=== PATIENT | male | born 1945 | race Caucasian/White ===

== ENCOUNTER 2016-09-03 10:21 | Emergency (ER) | payer OTHER, MEDICAID ==
[~2016-09-03] VITALS: Ht 167.6 cm; Wt 107.2 kg
[~2016-09-03 10:21] MED LIST: ACLI400A2 IH; ASPI-825 PO; CANA300T PO; FURO20 PO; INSU100C3 SQ; INSU100C4 SQ; LOSA50TA37 PO; METF10002 PO; METO-323 PO; MULT-1259 PO; POTA10TA14 PO; SIMV-261 PO; SYMB8060 IH; TAMS-1 PO; VITAD5000 PO
[2016-09-03 10:37] LABS: GLUCOSE,POINT OF CARE 187 MG/DL (70-110)
[2016-09-03] MEDS ORDERED: NAPR-58 PO (10:38)
[2016-09-03] MEDS ORDERED: GLYB5 PO (10:38)
[2016-09-03] MEDS ORDERED: NIZO215C TP (10:38)
[2016-09-03] MEDS ORDERED: FURO20 PO (10:38)
[2016-09-03] MEDS ORDERED: LISI-662 PO (10:38)
[2016-09-03] MEDS ORDERED: HYDR25TA PO (10:38)
[2016-09-03] MEDS ORDERED: HYDROCODONE/ACETAMINOPHEN 5-325 MG TABLET PO ONE (12:45)
[2016-09-03 12:55] LABS: BASOPHILS % (AUTO) 0.5 % (0.0-2.0); EOSINOPHILS % (AUTO) 1.6 % (1.0-6.0); HEMOGLOBIN 15.5 g/dL (13.5-17.5); LYMPHOCYTES # (AUTO) 2.6 K/uL (1.0-4.8); LYMPHOCYTES % (AUTO) 28.8 % (22.0-44.0); MEAN CORPUSCULAR HEMOGLOBIN 28.8 pg (26.0-34.0); MEAN CORPUSCULAR HGB CONC 32.9 G/dL (31.0-37.0); MEAN CORPUSCULAR VOLUME 87 fL (80-100); MONOCYTES # (AUTO) 0.6 K/uL (0.1-1.0); NEUTROPHILS # (AUTO) 5.8 K/uL (1.8-7.7); NEUTROPHILS % (AUTO) 63.1 % (40.0-70.0); PLATELET COUNT (AUTO) 204 K/uL (150-450); RED BLOOD CELL COUNT(AUTO) 5.37 MIL/uL (4.50-5.90); RED CELL DISTRIBUTION WIDTH 14.3 % (11.5-14.5); WHITE BLOOD COUNT (AUTO) 9.2 K/uL (4.5-11.0)
[2016-09-03 13:06] LABS: ANION GAP 8 mmol/L (8-16); CARBON DIOXIDE 33 mmol/L (22-29); CHLORIDE 101 mmol/L (98-107); CREATININE 1.14 mg/dL (0.60-1.30); GLOMERULAR FILTR. RATE CALC > 60 mL/min (>60); POTASSIUM 3.8 mmol/L (3.5-5.1); SODIUM SERUM 142 mmol/L (136-145); UREA NITROGEN, BLOOD 17 mg/dL (7-18)
[2016-09-03 13:13] LABS: ALANINE AMINOTRANSFERASE 34 U/L (12-78); ALBUMIN 3.7 g/dL (3.4-5.0); ASPARTATE AMINOTRANSFERASE 20 U/L (15-37); BILIRUBIN,TOTAL 0.3 mg/dL (0.1-1.0); TOTAL PROTEIN, SERUM 7.6 g/dL (6.4-8.2)
[2016-09-03 15:01] VITALS: BP 126/83
[2016-11-20] MEDS ORDERED: CANA100T PO (14:32)
[2016-11-20] MEDS ORDERED: KDUR10 PO (14:32)
== END 2016-09-03 15:05 | disposition home or self-care (01) ==
LOC: EMS 10:23
DX: M71.21 Synovial cyst of popliteal space [Baker], right knee (principal); I11.0 Hypertensive heart disease with heart failure; I50.9 Heart failure, unspecified; E11.9 Type 2 diabetes mellitus without complications; E78.00 Pure hypercholesterolemia, unspecified; J40 Bronchitis, not specified as acute or chronic; Z88.8 Allergy status to other drugs, medicaments and biological substances; Z79.82 Long term (current) use of aspirin
CPT/HCPCS: 82962; 85379; 93971; 99285

== ENCOUNTER → 2016-09-26 | Outpatient (CLI) | payer OTHER, MEDICAID ==
[~2016-09-26] MED LIST changes: -ACLI400A2 IH; -CANA300T PO; +GLYB5 PO; +HYDR25TA PO; -INSU100C3 SQ; -INSU100C4 SQ; +LISI-662 PO; -LOSA50TA37 PO; -MULT-1259 PO; +NAPR-58 PO; +NIZO215C TP; -SIMV-261 PO; +SIMV40 PO; -SYMB8060 IH; -VITAD5000 PO
== END | disposition home or self-care (01) ==
LOC: RADPV 13:09
PROVIDERS: ATTEND Internal Medicine Critical Care Medicine
DX: J44.9 Chronic obstructive pulmonary disease, unspecified (principal); Z51.89 Encounter for other specified aftercare
CPT/HCPCS: 71020

== ENCOUNTER 2016-10-09 08:19 | Emergency (ER) | payer OTHER, MEDICAID ==
[~2016-10-09] VITALS: Ht 167.6 cm; Wt 108.2 kg
[2016-10-09 08:46] LABS: GLUCOSE,POINT OF CARE 211 MG/DL (70-110)
[2016-10-09 09:48] LABS: BASOPHILS % (AUTO) 1.4 % (0.0-2.0); EOSINOPHILS % (AUTO) 1.6 % (1.0-6.0); HEMATOCRIT 45.1 % (41-53); HEMOGLOBIN 14.8 g/dL (13.5-17.5); LYMPHOCYTES # (AUTO) 2.4 K/uL (1.0-4.8); MEAN CORPUSCULAR HEMOGLOBIN 28.7 pg (26.0-34.0); MEAN CORPUSCULAR HGB CONC 32.9 G/dL (31.0-37.0); MEAN CORPUSCULAR VOLUME 87 fL (80-100); MONOCYTES # (AUTO) 0.5 K/uL (0.1-1.0); NEUTROPHILS # (AUTO) 5.8 K/uL (1.8-7.7); PLATELET COUNT (AUTO) 183 K/uL (150-450); RED BLOOD CELL COUNT(AUTO) 5.16 MIL/uL (4.50-5.90); RED CELL DISTRIBUTION WIDTH 14.5 % (11.5-14.5); WHITE BLOOD COUNT (AUTO) 9.1 K/uL (4.5-11.0)
[2016-10-09 09:55] LABS: ANION GAP 8 mmol/L (8-16); CALCIUM, TOTAL 9.3 mg/dL (8.8-10.5); CARBON DIOXIDE 30 mmol/L (22-29); CHLORIDE 99 mmol/L (98-107); CREATININE 0.86 mg/dL (0.60-1.30); GLOMERULAR FILTR. RATE CALC > 60 mL/min (>60); POTASSIUM 3.5 mmol/L (3.5-5.1); SODIUM SERUM 137 mmol/L (136-145); UREA NITROGEN, BLOOD 14 mg/dL (7-18)
[2016-10-09 10:01] LABS: ALANINE AMINOTRANSFERASE 27 U/L (12-78); ALBUMIN 3.4 g/dL (3.4-5.0); ASPARTATE AMINOTRANSFERASE 14 U/L (15-37); BILIRUBIN,TOTAL 0.5 mg/dL (0.1-1.0); TOTAL PROTEIN, SERUM 7.6 g/dL (6.4-8.2)
[2016-10-09 10:08] LABS: B-TYPE NATRIURETIC PEPTIDE 22 pg/mL (0-100)
[2016-10-09 10:52] LABS: GLUCOSE,POINT OF CARE 178 MG/DL (70-110)
[2016-10-09 11:01] LABS: INFLUENZA TYPE B NEGATIVE FOR TYPE B (NEGATIVE)
[2016-10-09 11:15] LABS: APPEARANCE,URINE CLEAR (CLEAR); GLUCOSE, URINE (UA) >=1000 mg/dL (NEGATIVE); KETONES,URINE TRACE mg/dL (NEGATIVE); LEUKOCYTE ESTERASE ,URINE NEGATIVE (NEGATIVE); OCCULT BLOOD,URINE NEGATIVE (NEGATIVE); PROTEIN,URINE NEGATIVE (NEGATIVE)
[2016-10-09 11:18] LABS: ADD UA MICROSCOPIC YES
[2016-10-09 11:20] LABS: RBC,URINE None Seen /HPF (0-2)
[2016-10-09 11:23] LABS: SQUAMOUS EPITHELIAL CELL,UR Few /LPF (None Seen)
[2016-10-09] MEDS ORDERED: OSELTAMIVIR PHOSPHATE 75 MG CAPSULE PO ONE (12:30)
[2016-10-09 12:33] VITALS: BP 132/76
== END 2016-10-09 12:35 | disposition home or self-care (01) ==
LOC: EMS 08:20
DX: R05 Cough (principal); M54.2 Cervicalgia; I11.0 Hypertensive heart disease with heart failure; I50.9 Heart failure, unspecified; E11.9 Type 2 diabetes mellitus without complications; E78.00 Pure hypercholesterolemia, unspecified; F17.210 Nicotine dependence, cigarettes, uncomplicated
CPT/HCPCS: 82962; 87040; 87804; 93005; 99285

== ENCOUNTER 2016-10-15 09:16 | Emergency (ER) | payer OTHER, MEDICAID ==
[~2016-10-15] VITALS: Ht 167.6 cm; Wt 108290.0 kg
[2016-10-15 09:52] LABS: GLUCOSE,POINT OF CARE 165 MG/DL (70-110)
[2016-10-15] MEDS ORDERED: OSEL75 PO (09:58)
[2016-10-15] MEDS ORDERED: GuaiFENesin/D-METHORPHAN [SUGAR-FREE] 200-20MG/10 ML SYRUP UDCUP PO ONE (12:00)
[2016-10-15] MEDS ORDERED: ACETAMINOPHEN 325 MG TABLET PO ONE (12:00)
[2016-10-15 12:07] LABS: GLUCOSE,POINT OF CARE 118 MG/DL (70-110)
[2016-10-15 12:46] VITALS: BP 130/94
== END 2016-10-15 13:07 | disposition home or self-care (01) ==
LOC: EMS 09:17
DX: J40 Bronchitis, not specified as acute or chronic (principal); I11.0 Hypertensive heart disease with heart failure; I50.9 Heart failure, unspecified; E78.00 Pure hypercholesterolemia, unspecified; E11.9 Type 2 diabetes mellitus without complications; F17.200 Nicotine dependence, unspecified, uncomplicated
CPT/HCPCS: 82962; 99283

== ENCOUNTER 2016-12-28 09:59 | Emergency (ER) | payer OTHER, MEDICAID ==
[~2016-12-28] VITALS: Ht 167.6 cm; Wt 112.7 kg
[~2016-12-28 09:59] MED LIST changes: +CANA100T PO; +KDUR10 PO; -LISI-662 PO; -NAPR-58 PO; +SIMV-261 PO; -SIMV40 PO
[2016-12-28] MEDS ORDERED: INSLAN SQ (10:24)
[2016-12-28] MEDS ORDERED: INSU100V SQ (10:24)
[2016-12-28 10:27] LABS: GLUCOSE,POINT OF CARE 327 MG/DL (70-110)
[2016-12-28] MEDS ORDERED: HYDROCODONE/ACETAMINOPHEN 5-325 MG TABLET PO ONE (11:30)
[2016-12-28] MEDS ORDERED: BACITRACIN 0.9 GM PACKET OINTMENT TP ONE (12:45)
[2016-12-28 13:00] VITALS: BP 132/85
== END 2016-12-28 13:27 | disposition home or self-care (01) ==
LOC: EMS 10:00
DX: S91.204A Unspecified open wound of right lesser toe(s) with damage to nail, initial encounter (principal); E11.9 Type 2 diabetes mellitus without complications; E78.00 Pure hypercholesterolemia, unspecified; I11.0 Hypertensive heart disease with heart failure; I50.9 Heart failure, unspecified; F17.210 Nicotine dependence, cigarettes, uncomplicated; Z79.82 Long term (current) use of aspirin; Z79.4 Long term (current) use of insulin; W23.0XXA Caught, crushed, jammed, or pinched between moving objects, initial encounter; Y93.02 Activity, running; Y92.89 Other specified places as the place of occurrence of the external cause; Y99.8 Other external cause status
CPT/HCPCS: 82962; 99284

== ENCOUNTER 2017-01-09 13:05 | Emergency (ER) | payer BC, MEDICAID ==
[~2017-01-09] VITALS: Ht 167.6 cm; Wt 112.7 kg
[~2017-01-09 13:05] MED LIST changes: +ACLI400A2 IH; +BENZ-26 PO; +CANA300T PO; +CEPH500 PO; +FURO-152 PO; +FURO40 PO; +GLYB5TAB5 PO; +HYDR-3110 PO; +HYDR10SY16 PO; +HYDR20OI TP; +INSLAN SQ; +INSNOV SQ; +INSU100C3 SQ; +INSU100C4 SQ; +INSU100V SQ; +LEVO500 PO; +LIDE515C TD; +LISI-662 PO; +LISI40TA4 PO; +LOSA25TA2 PO; +LOSA50TA37 PO; +MECL-111 PO; +MULT-1259 PO; +NAPR-58 PO; +NITR100C4 PO; +NYSTPW TP; +OSEL75 PO; +SULF-168 PO; +SULF1TAB42 PO; +SYMB8060 IH; +TRI115C TP; +TRI115O TP; +VITAD5000 PO
[2017-01-09 13:22] LABS: GLUCOSE,POINT OF CARE 179 MG/DL (70-110)
[2017-01-09 14:45] VITALS: BP 128/83
== END 2017-01-09 14:49 | disposition home or self-care (01) ==
LOC: EMS 13:06
DX: J02.9 Acute pharyngitis, unspecified (principal); J02.8 Acute pharyngitis due to other specified organisms; B97.89 Other viral agents as the cause of diseases classified elsewhere; E11.9 Type 2 diabetes mellitus without complications; I11.0 Hypertensive heart disease with heart failure; I50.9 Heart failure, unspecified; E78.00 Pure hypercholesterolemia, unspecified; F17.210 Nicotine dependence, cigarettes, uncomplicated; Z79.4 Long term (current) use of insulin; Z79.82 Long term (current) use of aspirin
CPT/HCPCS: 82962; 87430; 99285

== ENCOUNTER 2017-03-30 10:01 | Emergency (ER) | payer OTHER, MEDICAID ==
[~2017-03-30] VITALS: Ht 167.6 cm; Wt 112.7 kg
[~2017-03-30 10:01] MED LIST changes: -ACLI400A2 IH; -BENZ-26 PO; -CANA300T PO; -CEPH500 PO; -FURO-152 PO; -FURO40 PO; -GLYB5TAB5 PO; -HYDR-3110 PO; -HYDR10SY16 PO; -HYDR20OI TP; -INSNOV SQ; -INSU100C3 SQ; -INSU100C4 SQ; -LEVO500 PO; -LIDE515C TD; -LISI-662 PO; -LISI40TA4 PO; -LOSA25TA2 PO; -LOSA50TA37 PO; -MECL-111 PO; -METO-323 PO; +METO25XL PO; -MULT-1259 PO; -NAPR-58 PO; -NITR100C4 PO; -NYSTPW TP; -OSEL75 PO; -POTA10TA14 PO; -SULF-168 PO; -SULF1TAB42 PO; -SYMB8060 IH; -TRI115C TP; -TRI115O TP; -VITAD5000 PO
[2017-03-30 10:08] VITALS: BP 135/64
[2017-03-30 10:17] LABS: GLUCOSE,POINT OF CARE 244 MG/DL (70-110)
== END 2017-03-30 12:31 | disposition home or self-care (01) ==
LOC: EMS 10:02
DX: H61.21 Impacted cerumen, right ear (principal); I10 Essential (primary) hypertension; E11.9 Type 2 diabetes mellitus without complications; E78.00 Pure hypercholesterolemia, unspecified; F17.200 Nicotine dependence, unspecified, uncomplicated; Z79.4 Long term (current) use of insulin; Z79.82 Long term (current) use of aspirin; Z85.820 Personal history of malignant melanoma of skin
CPT/HCPCS: 82962; 99282

== ENCOUNTER 2017-11-16 09:38 | Emergency (ER) | payer MEDICARE, MEDICAID ==
[~2017-11-16] VITALS: Ht 167.6 cm; Wt 102.3 kg
[~2017-11-16 09:38] MED LIST changes: -METF10002 PO; +METF10004 PO; -NIZO215C TP
[2017-11-16 10:02] LABS: GLUCOSE,POINT OF CARE 167 MG/DL (70-110)
[2017-11-16 10:37] VITALS: BP 137/73
[2017-11-16] MEDS ORDERED: IBUPROFEN 600 MG TABLET PO ONE (10:45)
[2017-11-16] MEDS ORDERED: SILVER SULFADIAZINE 1% 25 GM CREAM TP ONE (10:45)
== END 2017-11-16 11:09 | disposition home or self-care (01) ==
LOC: EMS 09:47
DX: T24.212A Burn of second degree of left thigh, initial encounter (principal); I11.0 Hypertensive heart disease with heart failure; I50.9 Heart failure, unspecified; E11.9 Type 2 diabetes mellitus without complications; E78.00 Pure hypercholesterolemia, unspecified; F17.210 Nicotine dependence, cigarettes, uncomplicated; Z79.4 Long term (current) use of insulin; X11.8XXA Contact with other hot tap-water, initial encounter; Y93.89 Activity, other specified; Y92.89 Other specified places as the place of occurrence of the external cause; Y99.8 Other external cause status
CPT/HCPCS: 16020; 99284; 99406

== ENCOUNTER 2017-12-16 09:07 | Inpatient (IN) | payer MEDICARE, MEDICAID ==
[~2017-12-16] VITALS: Ht 167.6 cm; Wt 104.2 kg
[2017-12-16 09:23] LABS: GLUCOSE,POINT OF CARE 284 MG/DL (70-110)
[2017-12-16] MEDS ORDERED: ACETAMINOPHEN 500 MG TABLET PO ONE (10:15)
[2017-12-16] MEDS ORDERED: SODIUM CHLORIDE 0.9% 1,000 ML IV ONE (10:15)
[2017-12-16] MEDS ORDERED: 0.9% SODIUM CHLORIDE 10 ML SYRINGE IVP PRN ×2 (10:15→11:45)
[2017-12-16 10:33] LABS: BILIRUBIN,URINE NEGATIVE (NEGATIVE); GLUCOSE, URINE (UA) 100 mg/dL (NEGATIVE); KETONES,URINE NEGATIVE (NEGATIVE); LEUKOCYTE ESTERASE ,URINE TRACE (NEGATIVE); NITRATE,URINE NEGATIVE (NEGATIVE); OCCULT BLOOD,URINE SMALL (NEGATIVE); PROTEIN,URINE TRACE (NEGATIVE); UROBILINOGEN,URINE 0.2 mg/dL (<=1.0)
[2017-12-16 10:41] LABS: APPEARANCE,URINE HAZY (CLEAR)
[2017-12-16 10:52] LABS: BACTERIA,URINE Few /HPF (None Seen); RBC,URINE 0-2 /HPF (0-2); RENAL EPITHELIAL CELLS,URINE Rare /LPF (None Seen); SQUAMOUS EPITHELIAL CELL,UR Few /LPF (None Seen)
[2017-12-16 10:53] LABS: BASOPHILS % (AUTO) 0.3 % (0.0-2.0); EOSINOPHILS % (AUTO) 2.7 % (1.0-6.0); HEMATOCRIT 46.4 % (41-53); HEMOGLOBIN 16.1 g/dL (13.5-17.5); LYMPHOCYTES # (AUTO) 1.4 K/uL (1.0-4.8); LYMPHOCYTES % (AUTO) 15.2 % (22.0-44.0); MEAN CORPUSCULAR HEMOGLOBIN 29.5 pg (26.0-34.0); MEAN CORPUSCULAR HGB CONC 34.8 G/dL (31.0-37.0); MEAN CORPUSCULAR VOLUME 85 fL (80-100); MONOCYTES # (AUTO) 0.8 K/uL (0.1-1.0); NEUTROPHILS # (AUTO) 6.6 K/uL (1.8-7.7); NEUTROPHILS % (AUTO) 72.8 % (40.0-70.0); PLATELET COUNT (AUTO) 155 K/uL (150-450); RED BLOOD CELL COUNT(AUTO) 5.47 MIL/uL (4.50-5.90); RED CELL DISTRIBUTION WIDTH 13.8 % (11.5-14.5)
[2017-12-16 11:02] LABS: PROTHROMBIN TIME 10.4 SEC (9.4-11.6)
[2017-12-16 11:10] LABS: LACTIC ACID 1.9 mmol/L (0.4-2.0)
[2017-12-16 11:16] LABS: ALANINE AMINOTRANSFERASE 33 U/L (12-78); ALBUMIN 3.7 g/dL (3.4-5.0); ALKALINE PHOSPHATASE 84 U/L (46-116); ANION GAP 5 mmol/L (8-16); ASPARTATE AMINOTRANSFERASE 23 U/L (15-37); BILIRUBIN,TOTAL 0.5 mg/dL (0.1-1.0); CALCIUM, TOTAL 8.2 mg/dL (8.8-10.5); CARBON DIOXIDE 36 mmol/L (22-29); CHLORIDE 93 mmol/L (98-107); CREATININE 0.99 mg/dL (0.60-1.30); GLOMERULAR FILTR. RATE CALC > 60 mL/min (>60); GLUCOSE,RANDOM 241 mg/dL (70-110); SODIUM SERUM 134 mmol/L (136-145); TOTAL PROTEIN, SERUM 8.1 g/dL (6.4-8.2); UREA NITROGEN, BLOOD 10 mg/dL (7-18)
[2017-12-16 11:19] LABS: POTASSIUM 2.6 mmol/L (3.5-5.1)
[2017-12-16 11:42] LABS: B-TYPE NATRIURETIC PEPTIDE 20 pg/mL (0-100)
[2017-12-16] MEDS ORDERED: CefTRIAXone SODIUM 2 GM in DEXTROSE 5%-WATER 20 ML IV ONE (11:45)
[2017-12-16] MEDS ORDERED: ONDANSETRON HCL 4 MG/2 ML VIAL IVP PRN ×2 (11:45→14:00)
[2017-12-16] MEDS ORDERED: POTASSIUM CHLORIDE 20 MEQ ER TABLET PO ONE (11:45)
[2017-12-16] MEDS ORDERED: ACETAMINOPHEN 325 MG TABLET PO PRN (11:45)
[2017-12-16 11:57] LABS: PHOSPHORUS 3.9 mg/dL (2.5-4.9)
[2017-12-16] MEDS: POTASSIUM CHL 10 MEQ/WATER 50 ML IV SCH ×3 (11:58→14:26)
[2017-12-16] MEDS ORDERED: MAGNESIUM SULFATE 2 GM, MVI, ADULT NO.1 WITH VIT K 10 ML, THIAMINE HCL 100 MG, FOLIC AC... IV ONE ×5 (12:15)
[2017-12-16] MEDS ORDERED: MISC MED-CONVERTED FROM AMBULATORY (Aspirin 81 MG) PO SCH (14:00)
[2017-12-16] MEDS ORDERED: ACETAMINOPHEN 650 MG/20.3 ML SOLUTION UDCUP PO PRN (14:00)
[2017-12-16] MEDS ORDERED: BISACODYL 10 MG RECTAL RECTAL SUPPOSITORY PR PRN (14:00)
[2017-12-16] MEDS ORDERED: MAGNESIUM HYDROXIDE SUSPENSION 30 ML UDCUP PO PRN (14:00)
[2017-12-16 14:01] VITALS: BP 148/93
[2017-12-16] MEDS: PANTOPRAZOLE SODIUM 40 MG DR TABLET PO SCH (14:24)
[2017-12-16] MEDS: TAMSULOSIN HCL 0.4 MG CAPSULE PO SCH (14:24)
[2017-12-16] MEDS: METOPROLOL SUCCINATE 25 MG ER TABLET PO SCH (14:24)
[2017-12-16] MEDS ORDERED: DEXTROSE 50%-WATER 25 GM/50 ML SYRINGE IVP PRN (14:45)
[2017-12-16] MEDS ORDERED: POTASSIUM CHL 10 MEQ/WATER 50 ML IV PRN (15:45)
[2017-12-16 16:00] VITALS: BP 134/78
[2017-12-16] MEDS: MetFORMIN HCL 500 MG TABLET PO SCH (18:04)
[2017-12-16] MEDS: INSULIN LISPRO 100 UNITS/ML SQ PRN ×2 (18:05→20:08)
[2017-12-16 19:18] VITALS: BP 118/69
[2017-12-16 19:28] LABS: GLUCOMETER DEV NAME(LOC) 5N 2S; GLUCOSE,POINT OF CARE 189 MG/DL (70-110)
[2017-12-16] MEDS: SIMVASTATIN 40 MG TABLET PO SCH (20:06)
[2017-12-16] MEDS: INSULIN GLARGINE,HUM.REC.ANLOG 100 UNITS/ML SQ SCH (20:09)
[2017-12-16] MEDS: POTASSIUM CHLORIDE 20 MEQ ER TABLET PO PRN (20:58)
[2017-12-16 23:23] VITALS: BP 128/81
[2017-12-17] MEDS: HEPARIN SODIUM,PORCINE 5,000 UNITS/ML VIAL SQ SCH ×3 (00:04→17:54)
[2017-12-17] MEDS: POTASSIUM CHLORIDE 20 MEQ ER TABLET PO PRN ×2 (02:02→08:44)
[2017-12-17 04:20] VITALS: BP 132/77
[2017-12-17] MEDS: INSULIN LISPRO 100 UNITS/ML SQ PRN (06:18)
[2017-12-17] MEDS: CANAGLIFLOZIN 100 MG TABLET PO SCH (06:30)
[2017-12-17 06:35] LABS: BASOPHILS % (AUTO) 0.2 % (0.0-2.0); EOSINOPHILS % (AUTO) 3.7 % (1.0-6.0); HEMATOCRIT 42.2 % (41-53); LYMPHOCYTES # (AUTO) 1.9 K/uL (1.0-4.8); LYMPHOCYTES % (AUTO) 27.1 % (22.0-44.0); MEAN CORPUSCULAR HEMOGLOBIN 30.4 pg (26.0-34.0); MEAN CORPUSCULAR HGB CONC 35.6 G/dL (31.0-37.0); MEAN CORPUSCULAR VOLUME 85 fL (80-100); MONOCYTES # (AUTO) 0.7 K/uL (0.1-1.0); MONOCYTES % (AUTO) 10.5 % (2.0-9.0); NEUTROPHILS # (AUTO) 4.1 K/uL (1.8-7.7); NEUTROPHILS % (AUTO) 58.5 % (40.0-70.0); PLATELET COUNT (AUTO) 155 K/uL (150-450); RED BLOOD CELL COUNT(AUTO) 4.94 MIL/uL (4.50-5.90); RED CELL DISTRIBUTION WIDTH 13.6 % (11.5-14.5)
[2017-12-17 06:53] LABS: GLUCOMETER DEV NAME(LOC) 5N 1P; GLUCOSE,POINT OF CARE 323 MG/DL (70-110)
[2017-12-17 06:54] LABS: GLUCOMETER DEV NAME(LOC) 5N 1P; GLUCOSE,POINT OF CARE 175 MG/DL (70-110)
[2017-12-17 07:10] LABS: ALANINE AMINOTRANSFERASE 30 U/L (12-78); ALBUMIN 3.1 g/dL (3.4-5.0); ALKALINE PHOSPHATASE 75 U/L (46-116); ANION GAP 8 mmol/L (8-16); ASPARTATE AMINOTRANSFERASE 21 U/L (15-37); BILIRUBIN,TOTAL 0.2 mg/dL (0.1-1.0); CALCIUM, TOTAL 7.5 mg/dL (8.8-10.5); CARBON DIOXIDE 30 mmol/L (22-29); CHLORIDE 100 mmol/L (98-107); CHOL/HDL RATIO 3.6 (4.2-7.3); CHOLESTEROL 136 mg/dL (131-200); CREATININE 0.68 mg/dL (0.60-1.30); GLOMERULAR FILTR. RATE CALC > 60 mL/min (>60); GLUCOSE,RANDOM 144 mg/dL (70-110); HDL CHOLESTEROL 38 mg/dL (40-60); LDL CHOL (CALC.) 58 mg/dL (0-130); POTASSIUM 3.4 mmol/L (3.5-5.1); SODIUM SERUM 138 mmol/L (136-145); TOTAL PROTEIN, SERUM 6.3 g/dL (6.4-8.2); TRIGLYCERIDES 202 mg/dL (15-150); UREA NITROGEN, BLOOD 7 mg/dL (7-18)
[2017-12-17 07:18] VITALS: BP 145/87
[2017-12-17 07:28] LABS: HEMOGLOBIN A1C 8.4 % (4.5-6.2)
[2017-12-17] MEDS: MetFORMIN HCL 500 MG TABLET PO SCH ×2 (08:40→17:55)
[2017-12-17] MEDS: GlyBURIDE 5 MG TABLET PO SCH (08:40)
[2017-12-17] MEDS: ASPIRIN 81 MG EC TABLET PO SCH (08:41)
[2017-12-17] MEDS: TAMSULOSIN HCL 0.4 MG CAPSULE PO SCH (08:42)
[2017-12-17] MEDS: FUROSEMIDE 20 MG TABLET PO SCH (08:42)
[2017-12-17] MEDS: METOPROLOL SUCCINATE 25 MG ER TABLET PO SCH (08:43)
[2017-12-17] MEDS: PANTOPRAZOLE SODIUM 40 MG DR TABLET PO SCH (08:43)
[2017-12-17] MEDS: POTASSIUM CHLORIDE 10 MEQ ER TABLET PO SCH ×2 (08:44→20:31)
[2017-12-17] MEDS: HYDROCHLOROTHIAZIDE 25 MG TABLET PO SCH (08:47)
[2017-12-17 11:33] VITALS: BP 129/61
[2017-12-17] MEDS ORDERED: CefTRIAXone SODIUM 1 GM in DEXTROSE 5%-WATER 10 ML IV SCH (15:00)
[2017-12-17 15:35] VITALS: BP 99/65
[2017-12-17] MEDS: MetroNIDAZOLE 500 MG/NACL 100 ML IV SCH (18:01)
[2017-12-17] MEDS ORDERED: SODIUM CHLORIDE 0.9% 250 ML IV ONE (18:05)
[2017-12-17 19:55] VITALS: BP 121/79
[2017-12-17] MEDS: SIMVASTATIN 40 MG TABLET PO SCH (20:32)
[2017-12-17] MEDS: INSULIN GLARGINE,HUM.REC.ANLOG 100 UNITS/ML SQ SCH (20:36)
[2017-12-17 23:43] VITALS: BP 112/65
[2017-12-18] MEDS: HEPARIN SODIUM,PORCINE 5,000 UNITS/ML VIAL SQ SCH ×2 (00:11→09:09)
[2017-12-18 00:29] LABS: GLUCOMETER DEV NAME(LOC) 5N 2S; GLUCOSE,POINT OF CARE 111 MG/DL (70-110)
[2017-12-18 00:29] LABS: GLUCOMETER DEV NAME(LOC) 5N 2S; GLUCOSE,POINT OF CARE 132 MG/DL (70-110)
[2017-12-18 00:29] LABS: GLUCOMETER DEV NAME(LOC) 5N 2S; GLUCOSE,POINT OF CARE 125 MG/DL (70-110)
[2017-12-18] MEDS: MetroNIDAZOLE 500 MG/NACL 100 ML IV SCH ×2 (02:07→09:18)
[2017-12-18 04:46] VITALS: BP 110/71
[2017-12-18] MEDS: CANAGLIFLOZIN 100 MG TABLET PO SCH (06:02)
[2017-12-18 07:16] VITALS: BP 99/59
[2017-12-18 07:29] VITALS: BP 117/50
[2017-12-18 08:30] VITALS: BP 114/71
[2017-12-18] MEDS: PANTOPRAZOLE SODIUM 40 MG DR TABLET PO SCH (09:04)
[2017-12-18] MEDS: MetFORMIN HCL 500 MG TABLET PO SCH (09:05)
[2017-12-18] MEDS: FUROSEMIDE 20 MG TABLET PO SCH (09:05)
[2017-12-18] MEDS: METOPROLOL SUCCINATE 25 MG ER TABLET PO SCH (09:06)
[2017-12-18] MEDS: POTASSIUM CHLORIDE 10 MEQ ER TABLET PO SCH (09:06)
[2017-12-18] MEDS: ASPIRIN 81 MG EC TABLET PO SCH (09:06)
[2017-12-18] MEDS: TAMSULOSIN HCL 0.4 MG CAPSULE PO SCH (09:07)
[2017-12-18] MEDS: GlyBURIDE 5 MG TABLET PO SCH (09:08)
[2017-12-18] MEDS: HYDROCHLOROTHIAZIDE 25 MG TABLET PO SCH (09:09)
[2017-12-18 11:25] VITALS: BP 103/61
[2017-12-18 11:49] LABS: GLUCOMETER DEV NAME(LOC) 5N 2S; GLUCOSE,POINT OF CARE 123 MG/DL (70-110)
[2017-12-18 11:49] LABS: GLUCOMETER DEV NAME(LOC) 5N 1P; GLUCOSE,POINT OF CARE 128 MG/DL (70-110)
[2017-12-18 14:51] VITALS: BP 128/70
== END 2017-12-18 15:40 | disposition home or self-care (01) | DRG 690 ==
LOC: EMS 09:10 → 5N 11:41
PROVIDERS: ADMIT Family Medicine; ATTEND Family Medicine
DX: N39.0 Urinary tract infection, site not specified (principal); I11.0 Hypertensive heart disease with heart failure; M19.90 Unspecified osteoarthritis, unspecified site; E87.6 Hypokalemia; E83.42 Hypomagnesemia; E11.51 Type 2 diabetes mellitus with diabetic peripheral angiopathy without gangrene; E78.00 Pure hypercholesterolemia, unspecified; E78.5 Hyperlipidemia, unspecified; I50.9 Heart failure, unspecified; N40.0 Benign prostatic hyperplasia without lower urinary tract symptoms; F17.200 Nicotine dependence, unspecified, uncomplicated; Z79.4 Long term (current) use of insulin; Z79.899 Other long term (current) drug therapy; Z79.82 Long term (current) use of aspirin; Z85.820 Personal history of malignant melanoma of skin
CPT/HCPCS: 83036; 83605; 83735; 84100; 84132; 87040; 87086; 93005; 96365; 96366; 96368; 97162; 97530; 99285; J0696; J1644; J1815; J3411; J3475; J3480; J3490; J7030; J7050; J7060

== ENCOUNTER 2017-12-31 08:15 | Emergency (ER) | payer MEDICARE, MEDICAID ==
[~2017-12-31] VITALS: Ht 167.6 cm; Wt 104.5 kg
[2017-12-31] MEDS ORDERED: HYDROCODONE/ACETAMINOPHEN 5-325 MG TABLET PO ONE (08:45)
[2017-12-31 09:00] LABS: BASOPHILS % (AUTO) 0.4 % (0.0-2.0); EOSINOPHILS % (AUTO) 1.7 % (1.0-6.0); HEMATOCRIT 43.7 % (41-53); HEMOGLOBIN 15.1 g/dL (13.5-17.5); LYMPHOCYTES # (AUTO) 2.3 K/uL (1.0-4.8); LYMPHOCYTES % (AUTO) 28.8 % (22.0-44.0); MEAN CORPUSCULAR HEMOGLOBIN 29.6 pg (26.0-34.0); MEAN CORPUSCULAR HGB CONC 34.6 G/dL (31.0-37.0); MEAN CORPUSCULAR VOLUME 86 fL (80-100); MONOCYTES # (AUTO) 0.6 K/uL (0.1-1.0); MONOCYTES % (AUTO) 7.6 % (2.0-9.0); NEUTROPHILS % (AUTO) 61.5 % (40.0-70.0); PLATELET COUNT (AUTO) 197 K/uL (150-450); RED BLOOD CELL COUNT(AUTO) 5.11 MIL/uL (4.50-5.90); RED CELL DISTRIBUTION WIDTH 13.6 % (11.5-14.5)
[2017-12-31 09:10] LABS: ANION GAP 4 mmol/L (8-16); CALCIUM, TOTAL 8.6 mg/dL (8.8-10.5); CARBON DIOXIDE 30 mmol/L (22-29); CHLORIDE 100 mmol/L (98-107); CREATININE 0.76 mg/dL (0.60-1.30); GLUCOSE,RANDOM 243 mg/dL (70-110); POTASSIUM 3.4 mmol/L (3.5-5.1); SODIUM SERUM 134 mmol/L (136-145); UREA NITROGEN, BLOOD 9 mg/dL (7-18)
[2017-12-31 09:11] LABS: GLOMERULAR FILTR. RATE CALC > 60 mL/min (>60)
[2017-12-31 09:16] LABS: ALANINE AMINOTRANSFERASE 36 U/L (12-78); ALBUMIN 3.2 g/dL (3.4-5.0); ALKALINE PHOSPHATASE 64 U/L (46-116); ASPARTATE AMINOTRANSFERASE 21 U/L (15-37); BILIRUBIN,TOTAL 0.5 mg/dL (0.1-1.0); TOTAL PROTEIN, SERUM 6.8 g/dL (6.4-8.2)
[2017-12-31] MEDS ORDERED: MAGNESIUM OXIDE 400 MG TABLET PO ONE (09:30)
[2017-12-31 09:36] VITALS: BP 122/73
== END 2017-12-31 10:26 | disposition home or self-care (01) ==
LOC: EMS 08:17
DX: M79.662 Pain in left lower leg (principal); E83.42 Hypomagnesemia; I11.0 Hypertensive heart disease with heart failure; I50.9 Heart failure, unspecified; E78.00 Pure hypercholesterolemia, unspecified; E11.9 Type 2 diabetes mellitus without complications; F17.210 Nicotine dependence, cigarettes, uncomplicated; Z79.4 Long term (current) use of insulin
CPT/HCPCS: 83735; 85379; 93925; 93971; 99285

== ENCOUNTER 2018-02-10 12:04 | Emergency (ER) | payer MEDICARE, MEDICAID ==
[~2018-02-10] VITALS: Ht 167.6 cm; Wt 104.5 kg
[~2018-02-10 12:04] MED LIST changes: -CANA100T PO
[2018-02-10 12:18] LABS: GLUCOSE,POINT OF CARE 179 MG/DL (70-110)
[2018-02-10] MEDS ORDERED: IBUPROFEN 800 MG TABLET PO ONE (12:30)
[2018-02-10 13:25] VITALS: BP 136/72
== END 2018-02-10 13:27 | disposition home or self-care (01) ==
LOC: EMS 12:05
DX: H60.91 Unspecified otitis externa, right ear (principal); H61.21 Impacted cerumen, right ear; I11.0 Hypertensive heart disease with heart failure; I50.9 Heart failure, unspecified; M19.90 Unspecified osteoarthritis, unspecified site; E78.00 Pure hypercholesterolemia, unspecified; F17.210 Nicotine dependence, cigarettes, uncomplicated; Z85.820 Personal history of malignant melanoma of skin
CPT/HCPCS: 69209; 99283

== ENCOUNTER 2018-07-16 08:19 | Inpatient (IN) | payer MEDICARE, MEDICAID ==
[~2018-07-16] VITALS: Ht 167.6 cm; Wt 100.5 kg
[~2018-07-16 08:19] MED LIST changes: +METF-446 PO; -METF10004 PO
[2018-07-16] MEDS ORDERED: DUTA.5 PO (08:25)
[2018-07-16] MEDS ORDERED: MULT-1290 PEG (08:25)
[2018-07-16] MEDS ORDERED: VITAD1000 PO (08:25)
[2018-07-16] MEDS ORDERED: ACETAMINOPHEN 500 MG TABLET PO ONE (08:30)
[2018-07-16 08:34] LABS: GLUCOSE,POINT OF CARE 248 MG/DL (70-110)
[2018-07-16 09:04] LABS: BASOPHILS % (AUTO) 0.3 % (0.0-2.0); HEMATOCRIT 43.4 % (41-53); HEMOGLOBIN 14.8 g/dL (13.5-17.5); LYMPHOCYTES # (AUTO) 1.9 K/uL (1.0-4.8); LYMPHOCYTES % (AUTO) 20.2 % (22.0-44.0); MEAN CORPUSCULAR HEMOGLOBIN 29.7 pg (26.0-34.0); MEAN CORPUSCULAR HGB CONC 34.2 G/dL (31.0-37.0); MEAN CORPUSCULAR VOLUME 87 fL (80-100); MONOCYTES # (AUTO) 0.7 K/uL (0.1-1.0); MONOCYTES % (AUTO) 7.7 % (2.0-9.0); NEUTROPHILS # (AUTO) 6.3 K/uL (1.8-7.7); NEUTROPHILS % (AUTO) 68.8 % (40.0-70.0); PLATELET COUNT (AUTO) 181 K/uL (150-450); RED BLOOD CELL COUNT(AUTO) 5.01 MIL/uL (4.50-5.90); RED CELL DISTRIBUTION WIDTH 13.3 % (11.5-14.5)
[2018-07-16 09:17] LABS: ANION GAP 6 mmol/L (8-16); CALCIUM, TOTAL 8.5 mg/dL (8.8-10.5); CARBON DIOXIDE 33 mmol/L (22-29); CHLORIDE 97 mmol/L (98-107); CREATININE 0.87 mg/dL (0.60-1.30); GLUCOSE,RANDOM 304 mg/dL (70-110); POTASSIUM 3.2 mmol/L (3.5-5.1); SODIUM SERUM 136 mmol/L (136-145); UREA NITROGEN, BLOOD 10 mg/dL (7-18)
[2018-07-16 09:18] LABS: GLOMERULAR FILTR. RATE CALC > 60 mL/min (>60)
[2018-07-16 10:28] LABS: APPEARANCE,URINE CLOUDY (CLEAR); BILIRUBIN,URINE NEGATIVE (NEGATIVE); GLUCOSE, URINE (UA) >=1000 mg/dL (NEGATIVE); KETONES,URINE NEGATIVE (NEGATIVE); LEUKOCYTE ESTERASE ,URINE SMALL (NEGATIVE); NITRATE,URINE POSITIVE (NEGATIVE); OCCULT BLOOD,URINE SMALL (NEGATIVE); PH,URINE 5.5 (5.0-8.0); PROTEIN,URINE NEGATIVE (NEGATIVE); UROBILINOGEN,URINE 0.2 mg/dL (<=1.0)
[2018-07-16 10:37] LABS: BACTERIA,URINE Many /HPF (None Seen)
[2018-07-16 10:38] LABS: SQUAMOUS EPITHELIAL CELL,UR Few /LPF (None Seen)
[2018-07-16] MEDS ORDERED: SODIUM CHLORIDE 0.9% 1,000 ML IV ONE (10:45)
[2018-07-16] MEDS ORDERED: CefTRIAXone 1 GM/DEXTROSE 50 ML IV ONE (10:45)
[2018-07-16 12:18] LABS: LACTIC ACID 2.3 mmol/L (0.4-2.0)
[2018-07-16] MEDS ORDERED: ZOLPIDEM TARTRATE 5 MG TABLET PO PRN (12:45)
[2018-07-16] MEDS ORDERED: ALBUTEROL SULFATE 2.5 MG/0.5 ML NEB SOLUTION NEB PRN (12:45)
[2018-07-16] MEDS ORDERED: ACETAMINOPHEN 325 MG TABLET PO PRN (12:45)
[2018-07-16] MEDS ORDERED: BISACODYL 10 MG RECTAL RECTAL SUPPOSITORY PR PRN (12:45)
[2018-07-16] MEDS ORDERED: ONDANSETRON HCL 4 MG/2 ML VIAL IVP PRN ×2 (12:45)
[2018-07-16] MEDS ORDERED: MAGNESIUM HYDROXIDE SUSPENSION 30 ML UDCUP PO PRN (12:45)
[2018-07-16] MEDS ORDERED: DEXTROSE 50%-WATER 25 GM/50 ML SYRINGE IVP PRN ×2 (12:45→13:00)
[2018-07-16] MEDS ORDERED: IPRATROPIUM BROMIDE 0.5 MG/2.5 ML NEB SOLUTION NEB PRN (12:45)
[2018-07-16] MEDS ORDERED: CloNIDine HCL 0.1 MG TABLET PO PRN (13:00)
[2018-07-16] MEDS ORDERED: CARVEDILOL 6.25 MG TABLET PO SCH (13:00)
[2018-07-16 14:15] VITALS: BP 127/71
[2018-07-16] MEDS: HEPARIN SODIUM,PORCINE 5,000 UNITS/ML VIAL SQ SCH ×2 (16:34→23:20)
[2018-07-16] MEDS: INSULIN LISPRO 100 UNITS/ML SQ SCH (16:37)
[2018-07-16] MEDS: INSULIN LISPRO 100 UNITS/ML SQ PRN ×2 (16:37→20:46)
[2018-07-16] MEDS ORDERED: POTASSIUM CHLORIDE 20 MEQ ER TABLET PO ONE (17:00)
[2018-07-16] MEDS ORDERED: MetFORMIN HCL 500 MG TABLET PO SCH (17:30)
[2018-07-16 19:05] LABS: GLUCOMETER DEV NAME(LOC) 4E.; GLUCOSE,POINT OF CARE 366 MG/DL (70-110)
[2018-07-16 19:25] LABS: CREATININE,URINE RANDOM 47.8 mg/dL (30.0-125.0)
[2018-07-16 19:48] VITALS: BP 138/99
[2018-07-16] MEDS: INSULIN GLARGINE,HUM.REC.ANLOG 100 UNITS/ML SQ SCH (20:45)
[2018-07-16 20:59] LABS: GLUCOMETER DEV NAME(LOC) 4E.; GLUCOSE,POINT OF CARE 273 MG/DL (70-110)
[2018-07-16] MEDS: POTASSIUM CHLORIDE 10 MEQ ER TABLET PO SCH (21:00)
[2018-07-16] MEDS: SIMVASTATIN 40 MG TABLET PO SCH (21:45)
[2018-07-16 23:28] VITALS: BP 142/87
[2018-07-17 05:15] VITALS: BP 143/78
[2018-07-17] MEDS: INSULIN LISPRO 100 UNITS/ML SQ SCH ×4 (05:42→17:54)
[2018-07-17] MEDS: INSULIN LISPRO 100 UNITS/ML SQ PRN ×4 (05:43→20:25)
[2018-07-17 05:44] LABS: GLUCOMETER DEV NAME(LOC) 4E.; GLUCOSE,POINT OF CARE 173 MG/DL (70-110)
[2018-07-17 06:09] LABS: BASOPHILS % (AUTO) 0.4 % (0.0-2.0); EOSINOPHILS % (AUTO) 3.9 % (1.0-6.0); HEMATOCRIT 43.2 % (41-53); HEMOGLOBIN 14.7 g/dL (13.5-17.5); LYMPHOCYTES # (AUTO) 2.2 K/uL (1.0-4.8); LYMPHOCYTES % (AUTO) 29.1 % (22.0-44.0); MEAN CORPUSCULAR HEMOGLOBIN 29.8 pg (26.0-34.0); MEAN CORPUSCULAR VOLUME 88 fL (80-100); MONOCYTES # (AUTO) 0.8 K/uL (0.1-1.0); MONOCYTES % (AUTO) 9.9 % (2.0-9.0); NEUTROPHILS # (AUTO) 4.3 K/uL (1.8-7.7); NEUTROPHILS % (AUTO) 56.7 % (40.0-70.0); PLATELET COUNT (AUTO) 176 K/uL (150-450); RED BLOOD CELL COUNT(AUTO) 4.92 MIL/uL (4.50-5.90)
[2018-07-17 06:26] LABS: HEMOGLOBIN A1C 11.1 % (4.5-6.2)
[2018-07-17 06:31] LABS: ANION GAP 5 mmol/L (8-16); CALCIUM, TOTAL 8.6 mg/dL (8.8-10.5); CARBON DIOXIDE 32 mmol/L (22-29); CHLORIDE 102 mmol/L (98-107); CHOL/HDL RATIO 4.2 (4.2-7.3); CHOLESTEROL 174 mg/dL (131-200); CREATINE KINASE, TOTAL ONLY 57 U/L (39-308); CREATININE 0.69 mg/dL (0.60-1.30); GLOMERULAR FILTR. RATE CALC > 60 mL/min (>60); GLUCOSE,RANDOM 155 mg/dL (70-110); HDL CHOLESTEROL 41 mg/dL (40-60); LDL CHOL (CALC.) 76 mg/dL (0-130); POTASSIUM 3.6 mmol/L (3.5-5.1); SODIUM SERUM 139 mmol/L (136-145); THYROID STIMULATING HORMONE 2.74 uIU/mL (0.36-3.74); TRIGLYCERIDES 285 mg/dL (15-150); UREA NITROGEN, BLOOD 7 mg/dL (7-18)
[2018-07-17 06:32] LABS: LACTIC ACID 1.2 mmol/L (0.4-2.0)
[2018-07-17 08:12] VITALS: BP 128/78
[2018-07-17] MEDS ORDERED: HYDROCHLOROTHIAZIDE 25 MG TABLET PO SCH (09:00)
[2018-07-17] MEDS ORDERED: [UNRECOGNIZED DRUG - OTHER] PEG SCH (09:00)
[2018-07-17] MEDS: DUTASTERIDE 0.5 MG CAPSULE PO SCH (09:00)
[2018-07-17] MEDS ORDERED: FUROSEMIDE 20 MG TABLET PO SCH (09:00)
[2018-07-17] MEDS: ASPIRIN 81 MG CHEWABLE TABLET PO SCH (09:00)
[2018-07-17] MEDS: METOPROLOL SUCCINATE 50 MG ER TABLET PO SCH (09:01)
[2018-07-17] MEDS: PANTOPRAZOLE SODIUM 40 MG DR TABLET PO SCH (09:01)
[2018-07-17] MEDS: LOSARTAN POTASSIUM 50 MG TABLET PO SCH (09:01)
[2018-07-17] MEDS: CHOLECALCIFEROL (VIT D3) 1,000 UNITS TABLET PO SCH (09:01)
[2018-07-17] MEDS: POTASSIUM CHLORIDE 10 MEQ ER TABLET PO SCH ×2 (09:01→20:14)
[2018-07-17 11:38] VITALS: BP 129/82
[2018-07-17] MEDS ORDERED: SODIUM CHLORIDE 0.9% 500 ML IV ONE (12:37)
[2018-07-17] MEDS: CefTRIAXone 1 GM/DEXTROSE 50 ML IV SCH (12:46)
[2018-07-17] MEDS: HEPARIN SODIUM,PORCINE 5,000 UNITS/ML VIAL SQ SCH (12:51)
[2018-07-17 13:24] LABS: GLUCOMETER DEV NAME(LOC) 4E.; GLUCOSE,POINT OF CARE 197 MG/DL (70-110)
[2018-07-17 15:37] VITALS: BP 130/86
[2018-07-17 19:26] VITALS: BP 112/65
[2018-07-17 19:39] LABS: GLUCOMETER DEV NAME(LOC) 6N.1; GLUCOSE,POINT OF CARE 183 MG/DL (70-110)
[2018-07-17] MEDS: SIMVASTATIN 40 MG TABLET PO SCH (20:14)
[2018-07-17] MEDS: INSULIN GLARGINE,HUM.REC.ANLOG 100 UNITS/ML SQ SCH (20:36)
[2018-07-17 20:59] LABS: GLUCOMETER DEV NAME(LOC) 6N.1; GLUCOSE,POINT OF CARE 278 MG/DL (70-110)
[2018-07-18] VITALS (7 sets, daily range): BP systolic 95–140; BP diastolic 58–82
[2018-07-18] MEDS: HEPARIN SODIUM,PORCINE 5,000 UNITS/ML VIAL SQ SCH ×2 (00:04→15:45)
[2018-07-18 05:49] LABS: GLUCOMETER DEV NAME(LOC) 6N.2; GLUCOSE,POINT OF CARE 128 MG/DL (70-110)
[2018-07-18] MEDS: CHOLECALCIFEROL (VIT D3) 1,000 UNITS TABLET PO SCH (08:05)
[2018-07-18] MEDS: PANTOPRAZOLE SODIUM 40 MG DR TABLET PO SCH (08:05)
[2018-07-18] MEDS: METOPROLOL SUCCINATE 50 MG ER TABLET PO SCH (08:06)
[2018-07-18] MEDS: ASPIRIN 81 MG CHEWABLE TABLET PO SCH (08:06)
[2018-07-18] MEDS: LOSARTAN POTASSIUM 50 MG TABLET PO SCH (08:06)
[2018-07-18] MEDS: DUTASTERIDE 0.5 MG CAPSULE PO SCH (08:06)
[2018-07-18] MEDS: INSULIN LISPRO 100 UNITS/ML SQ SCH ×3 (08:07→17:32)
[2018-07-18 08:30] LABS: BASOPHILS % (AUTO) 1.8 % (0.0-2.0); EOSINOPHILS % (AUTO) 3.8 % (1.0-6.0); HEMATOCRIT 44.6 % (41-53); HEMOGLOBIN 15.2 g/dL (13.5-17.5); LYMPHOCYTES # (AUTO) 2.8 K/uL (1.0-4.8); MEAN CORPUSCULAR HEMOGLOBIN 29.9 pg (26.0-34.0); MEAN CORPUSCULAR HGB CONC 34.1 G/dL (31.0-37.0); MEAN CORPUSCULAR VOLUME 88 fL (80-100); MONOCYTES # (AUTO) 0.6 K/uL (0.1-1.0); NEUTROPHILS # (AUTO) 4.1 K/uL (1.8-7.7); NEUTROPHILS % (AUTO) 51.4 % (40.0-70.0); PLATELET COUNT (AUTO) 196 K/uL (150-450); RED BLOOD CELL COUNT(AUTO) 5.08 MIL/uL (4.50-5.90); RED CELL DISTRIBUTION WIDTH 13.9 % (11.5-14.5)
[2018-07-18 08:45] LABS: ANION GAP 5 mmol/L (8-16); CALCIUM, TOTAL 8.7 mg/dL (8.8-10.5); CARBON DIOXIDE 32 mmol/L (22-29); CHLORIDE 103 mmol/L (98-107); CREATININE 0.72 mg/dL (0.60-1.30); GLOMERULAR FILTR. RATE CALC > 60 mL/min (>60); GLUCOSE,RANDOM 182 mg/dL (70-110); POTASSIUM 4.1 mmol/L (3.5-5.1); SODIUM SERUM 140 mmol/L (136-145); UREA NITROGEN, BLOOD 10 mg/dL (7-18)
[2018-07-18] MEDS: INSULIN LISPRO 100 UNITS/ML SQ PRN ×3 (11:34→20:32)
[2018-07-18] MEDS: CefTRIAXone 1 GM/DEXTROSE 50 ML IV SCH (11:35)
[2018-07-18 17:44] LABS: GLUCOMETER DEV NAME(LOC) 6N.1; GLUCOSE,POINT OF CARE 189 MG/DL (70-110)
[2018-07-18 17:44] LABS: GLUCOMETER DEV NAME(LOC) 6N.2; GLUCOSE,POINT OF CARE 297 MG/DL (70-110)
[2018-07-18] MEDS ORDERED: INSULIN LISPRO 100 UNITS/ML SQ ONE (18:15)
[2018-07-18] MEDS: SIMVASTATIN 40 MG TABLET PO SCH (19:43)
[2018-07-18] MEDS: INSULIN GLARGINE,HUM.REC.ANLOG 100 UNITS/ML SQ SCH (20:33)
[2018-07-19] MEDS: HEPARIN SODIUM,PORCINE 5,000 UNITS/ML VIAL SQ SCH (04:53)
[2018-07-19 04:58] VITALS: BP 131/80
[2018-07-19 06:05] LABS: GLUCOMETER DEV NAME(LOC) 6N.2; GLUCOSE,POINT OF CARE 145 MG/DL (70-110)
[2018-07-19 06:10] LABS: GLUCOMETER DEV NAME(LOC) 6N.1; GLUCOSE,POINT OF CARE 180 MG/DL (70-110)
[2018-07-19 06:14] LABS: BASOPHILS % (AUTO) 0.5 % (0.0-2.0); EOSINOPHILS % (AUTO) 4.1 % (1.0-6.0); HEMATOCRIT 41.1 % (41-53); HEMOGLOBIN 13.8 g/dL (13.5-17.5); LYMPHOCYTES # (AUTO) 2.6 K/uL (1.0-4.8); LYMPHOCYTES % (AUTO) 35.5 % (22.0-44.0); MEAN CORPUSCULAR HEMOGLOBIN 29.6 pg (26.0-34.0); MEAN CORPUSCULAR HGB CONC 33.5 G/dL (31.0-37.0); MEAN CORPUSCULAR VOLUME 88 fL (80-100); MONOCYTES # (AUTO) 0.6 K/uL (0.1-1.0); MONOCYTES % (AUTO) 8.4 % (2.0-9.0); NEUTROPHILS # (AUTO) 3.8 K/uL (1.8-7.7); NEUTROPHILS % (AUTO) 51.5 % (40.0-70.0); PLATELET COUNT (AUTO) 188 K/uL (150-450); RED BLOOD CELL COUNT(AUTO) 4.65 MIL/uL (4.50-5.90); RED CELL DISTRIBUTION WIDTH 13.7 % (11.5-14.5)
[2018-07-19 06:21] LABS: ANION GAP 7 mmol/L (8-16); CALCIUM, TOTAL 8.8 mg/dL (8.8-10.5); CARBON DIOXIDE 30 mmol/L (22-29); CHLORIDE 104 mmol/L (98-107); GLUCOSE,RANDOM 150 mg/dL (70-110); POTASSIUM 3.7 mmol/L (3.5-5.1); SODIUM SERUM 141 mmol/L (136-145); UREA NITROGEN, BLOOD 16 mg/dL (7-18)
[2018-07-19 06:27] LABS: GLOMERULAR FILTR. RATE CALC > 60 mL/min (>60)
[2018-07-19] MEDS: INSULIN LISPRO 100 UNITS/ML SQ PRN (06:53)
[2018-07-19] MEDS ORDERED: INSULIN LISPRO 100 UNITS/ML SQ SCH (07:30)
[2018-07-19 07:40] VITALS: BP 121/64
[2018-07-19] MEDS: PANTOPRAZOLE SODIUM 40 MG DR TABLET PO SCH (09:13)
[2018-07-19] MEDS: ASPIRIN 81 MG CHEWABLE TABLET PO SCH (09:13)
[2018-07-19] MEDS: CHOLECALCIFEROL (VIT D3) 1,000 UNITS TABLET PO SCH (09:13)
[2018-07-19] MEDS: METOPROLOL SUCCINATE 50 MG ER TABLET PO SCH (09:13)
[2018-07-19] MEDS: DUTASTERIDE 0.5 MG CAPSULE PO SCH (09:14)
[2018-07-19] MEDS: LOSARTAN POTASSIUM 50 MG TABLET PO SCH (09:14)
[2018-07-19] MEDS ORDERED: CEFU250T58 PO (09:23)
[2018-07-19] MEDS ORDERED: FUROSEMIDE 20 MG TABLET PO SCH (10:00)
[2018-07-19] MEDS ORDERED: MetFORMIN HCL 500 MG ER TABLET PO SCH (18:00)
[2018-07-20 13:55] LABS: ALBUMIN URINE (ELP) 44.6 %
== END 2018-07-19 10:00 | disposition home or self-care (01) | DRG 872 ==
LOC: EMS 08:20 → 4E 13:35 → 6N 07-17 16:57
PROVIDERS: ADMIT Internal Medicine Geriatric Medicine; ATTEND Internal Medicine Geriatric Medicine
PROC: 5A09357 Assistance with Respiratory Ventilation, Less than 24 Consecutive Hours, Continuous Positive Airway Pressure (ICD-10-PCS; principal; 2018-07-16)
DX: A41.9 Sepsis, unspecified organism (principal); N39.0 Urinary tract infection, site not specified; E87.4 Mixed disorder of acid-base balance; I13.0 Hypertensive heart and chronic kidney disease with heart failure and stage 1 through stage 4 chronic kidney disease, or unspecified chronic kidney disease; N40.0 Benign prostatic hyperplasia without lower urinary tract symptoms; J44.9 Chronic obstructive pulmonary disease, unspecified; N18.2 Chronic kidney disease, stage 2 (mild); E11.51 Type 2 diabetes mellitus with diabetic peripheral angiopathy without gangrene; Z91.19 Patient's noncompliance with other medical treatment and regimen; E11.22 Type 2 diabetes mellitus with diabetic chronic kidney disease; E11.65 Type 2 diabetes mellitus with hyperglycemia; E78.00 Pure hypercholesterolemia, unspecified; E78.5 Hyperlipidemia, unspecified; E87.6 Hypokalemia; F17.200 Nicotine dependence, unspecified, uncomplicated; G47.33 Obstructive sleep apnea (adult) (pediatric); I87.2 Venous insufficiency (chronic) (peripheral); M10.9 Gout, unspecified; Z79.4 Long term (current) use of insulin; Z80.0 Family history of malignant neoplasm of digestive organs; Z83.3 Family history of diabetes mellitus; Z85.820 Personal history of malignant melanoma of skin; E66.9 Obesity, unspecified; Z68.35 Body mass index [BMI] 35.0-35.9, adult
CPT/HCPCS: 76770; 82570; 83036; 83605; 83735; 84156; 84166; 84300; 84439; 84443; 87086; 93306; 94660; 96365; 97161; 97166; 97535; G0378; J0696; J1644; J1815; J7030; J7040

== ENCOUNTER 2018-10-12 13:59 | Emergency (ER) | payer MEDICARE, MEDICAID ==
[~2018-10-12] VITALS: Ht 167.6 cm; Wt 100.9 kg
[~2018-10-12 13:59] MED LIST changes: +CEFU250T58 PO; +DUTA.5 PO; -GLYB5 PO; -METO25XL PO; +MULT-1290 PEG; -TAMS-1 PO; +VITAD1000 PO
[2018-10-12 14:14] LABS: GLUCOSE,POINT OF CARE 284 MG/DL (70-110)
[2018-10-12 16:17] VITALS: BP 132/84
== END 2018-10-12 16:35 | disposition home or self-care (01) ==
LOC: EMS 14:01
DX: S61.401A Unspecified open wound of right hand, initial encounter (principal); S61.402A Unspecified open wound of left hand, initial encounter; L08.89 Other specified local infections of the skin and subcutaneous tissue; E11.9 Type 2 diabetes mellitus without complications; E78.00 Pure hypercholesterolemia, unspecified; I11.0 Hypertensive heart disease with heart failure; I50.9 Heart failure, unspecified; M19.90 Unspecified osteoarthritis, unspecified site; F17.210 Nicotine dependence, cigarettes, uncomplicated; Z79.899 Other long term (current) drug therapy; Z85.820 Personal history of malignant melanoma of skin; Z98.890 Other specified postprocedural states; Z79.4 Long term (current) use of insulin; X58.XXXA Exposure to other specified factors, initial encounter; Y93.89 Activity, other specified; Y92.89 Other specified places as the place of occurrence of the external cause; Y99.8 Other external cause status

== ENCOUNTER 2019-07-18 06:40 | Emergency (ER) | payer MEDICARE, MEDICAID ==
[~2019-07-18] VITALS: Ht 167.6 cm; Wt 103.6 kg
[~2019-07-18 06:40] MED LIST changes: +CHOL100018 PO; -VITAD1000 PO
[2019-07-18] MEDS ORDERED: CETI10TA59 PO (07:18)
[2019-07-18] MEDS ORDERED: METO25 PO (07:18)
[2019-07-18 07:29] LABS: GLUCOSE,POINT OF CARE 319 MG/DL (70-110)
[2019-07-18] MEDS ORDERED: IPRATROPIUM BROMIDE 0.5 MG/2.5 ML NEB SOLUTION NEB ONE (08:15)
[2019-07-18] MEDS ORDERED: PredniSONE 20 MG TABLET PO ONE (08:15)
[2019-07-18] MEDS ORDERED: ALBUTEROL SULFATE 2.5 MG/0.5 ML NEB SOLUTION NEB ONE (08:15)
[2019-07-18] MEDS ORDERED: CefTRIAXone SODIUM 1 GM/VIAL IM ONE (08:30)
[2019-07-18] MEDS ORDERED: LIDOCAINE/PF 1% 2 ML VIAL IM ONE (08:30)
[2019-07-18] MEDS ORDERED: ACETAMINOPHEN 500 MG TABLET PO ONE (08:45)
[2019-07-18 10:43] VITALS: BP 136/95
== END 2019-07-18 11:23 | disposition home or self-care (01) ==
LOC: EMS 06:40
DX: J20.9 Acute bronchitis, unspecified (principal); R51 Headache; I11.0 Hypertensive heart disease with heart failure; I50.9 Heart failure, unspecified; E11.9 Type 2 diabetes mellitus without complications; E78.00 Pure hypercholesterolemia, unspecified; F17.210 Nicotine dependence, cigarettes, uncomplicated; Z79.82 Long term (current) use of aspirin; Z79.84 Long term (current) use of oral hypoglycemic drugs; Z79.4 Long term (current) use of insulin
CPT/HCPCS: 71045; 82962; 94640; 96372; 99283; J0696; J3490; J7512

== ENCOUNTER → 2019-07-20 | Outpatient (CLI) | payer MEDICARE, MEDICAID ==
[~2019-07-20] MED LIST changes: -CEFU250T58 PO; +CETI10TA59 PO; -CHOL100018 PO; -DUTA.5 PO; -HYDR25TA PO; +METO25 PO; -MULT-1290 PEG
[2019-07-20 11:27] VITALS: BP 133/78
== END | disposition home or self-care (01) ==
LOC: SRCNTR 11:26
PROVIDERS: ATTEND Internal Medicine Critical Care Medicine
DX: G47.33 Obstructive sleep apnea (adult) (pediatric) (principal); J44.9 Chronic obstructive pulmonary disease, unspecified; E11.9 Type 2 diabetes mellitus without complications; N40.0 Benign prostatic hyperplasia without lower urinary tract symptoms; I10 Essential (primary) hypertension; F17.200 Nicotine dependence, unspecified, uncomplicated; N39.0 Urinary tract infection, site not specified; M10.9 Gout, unspecified; M19.90 Unspecified osteoarthritis, unspecified site; Z79.84 Long term (current) use of oral hypoglycemic drugs; Z79.82 Long term (current) use of aspirin; Z79.899 Other long term (current) drug therapy; Z98.890 Other specified postprocedural states
CPT/HCPCS: G0463

== ENCOUNTER 2019-08-11 09:29 | Emergency (ER) | payer MEDICARE, MEDICAID ==
[~2019-08-11] VITALS: Ht 170.2 cm; Wt 131.8 kg
[2019-08-11 09:57] LABS: GLUCOSE,POINT OF CARE 236 MG/DL (70-110)
[2019-08-11] MEDS ORDERED: MetroNIDAZOLE 500 MG/NACL 100 ML IV ONE (10:15)
[2019-08-11] MEDS ORDERED: CefTRIAXone 1 GM/DEXTROSE 50 ML IV ONE (10:15)
[2019-08-11 10:41] LABS: INFLUENZA TYPE A NEGATIVE FOR TYPE A (NEGATIVE); INFLUENZA TYPE B NEGATIVE FOR TYPE B (NEGATIVE)
[2019-08-11 11:34] VITALS: BP 133/76
== END 2019-08-11 11:50 | disposition home or self-care (01) ==
LOC: EMS 09:31
DX: J40 Bronchitis, not specified as acute or chronic (principal); E11.9 Type 2 diabetes mellitus without complications; E78.00 Pure hypercholesterolemia, unspecified; I11.0 Hypertensive heart disease with heart failure; I50.9 Heart failure, unspecified; M19.90 Unspecified osteoarthritis, unspecified site; F17.210 Nicotine dependence, cigarettes, uncomplicated; Z98.890 Other specified postprocedural states; Z79.899 Other long term (current) drug therapy
CPT/HCPCS: 87804; J0696; J3490

== ENCOUNTER 2020-03-31 09:45 | Emergency (ER) | payer MEDICARE, MEDICAID ==
[~2020-03-31] VITALS: Ht 165.1 cm; Wt 84.1 kg
[~2020-03-31 09:45] MED LIST changes: +ASPI-728 PO; -ASPI-825 PO; +CETI-450 PO; -CETI10TA59 PO; -KDUR10 PO; +POTA-92 PO
[2020-03-31] MEDS ORDERED: OxyCODONE HCL/ACETAMINOPHEN 5-325 MG TABLET PO ONE (10:00)
[2020-03-31] MEDS ORDERED: ONDANSETRON HCL 4 MG TABLET PO ONE (10:00)
[2020-03-31] MEDS ORDERED: BACITRACIN 0.9 GM PACKET OINTMENT TP ONE ×2 (10:00→11:45)
[2020-03-31] MEDS ORDERED: KETOROLAC TROMETHAMINE 30 MG/ML VIAL IVP ONE (11:45)
[2020-03-31 11:55] VITALS: BP 131/79
== END 2020-03-31 12:13 | disposition home or self-care (01) ==
LOC: EMS 09:47
DX: T24.201A Burn of second degree of unspecified site of right lower limb, except ankle and foot, initial encounter (principal); T24.202A Burn of second degree of unspecified site of left lower limb, except ankle and foot, initial encounter; I11.0 Hypertensive heart disease with heart failure; I50.9 Heart failure, unspecified; E11.9 Type 2 diabetes mellitus without complications; E78.00 Pure hypercholesterolemia, unspecified; F17.210 Nicotine dependence, cigarettes, uncomplicated; Z88.1 Allergy status to other antibiotic agents; Z79.4 Long term (current) use of insulin; Z79.82 Long term (current) use of aspirin; X11.8XXA Contact with other hot tap-water, initial encounter; Y93.89 Activity, other specified; Y92.89 Other specified places as the place of occurrence of the external cause; Y99.8 Other external cause status
CPT/HCPCS: 16020; 82962; 96374; 99283; J1885; Q0162

== ENCOUNTER 2020-09-19 18:55 | Emergency (ER) | payer MEDICARE, MEDICAID ==
[~2020-09-19] VITALS: Ht 167.6 cm; Wt 104.5 kg
[~2020-09-19 18:55] MED LIST changes: +ASPI-1450 PO; -ASPI-728 PO
[2020-09-19 19:50] VITALS: BP 134/69
[2020-09-19] MEDS ORDERED: HYDROCODONE/ACETAMINOPHEN 5-325 MG TABLET PO ONE (20:15)
[2020-09-19] MEDS ORDERED: CEPHALEXIN MONOHYDRATE 500 MG CAPSULE PO ONE (20:15)
[2020-09-19] MEDS ORDERED: PERTUSS(ACELL),DIPH,TET VAC/PF 0.5 ML SYRINGE IM ONE (20:15)
== END 2020-09-19 21:13 | disposition home or self-care (01) ==
LOC: EMS 18:55
DX: T24.211A Burn of second degree of right thigh, initial encounter (principal); I11.0 Hypertensive heart disease with heart failure; I50.9 Heart failure, unspecified; E11.9 Type 2 diabetes mellitus without complications; F17.210 Nicotine dependence, cigarettes, uncomplicated; X17.XXXA Contact with hot engines, machinery and tools, initial encounter; Y93.89 Activity, other specified; Y92.89 Other specified places as the place of occurrence of the external cause; Y99.8 Other external cause status
CPT/HCPCS: 16020; 90471; 90715; 99283

== ENCOUNTER 2021-07-08 08:46 | Emergency (ER) | payer MEDICARE, MEDICAID ==
[~2021-07-08] VITALS: Ht 172.7 cm; Wt 78.0 kg
[~2021-07-08 08:46] MED LIST changes: +APIX2.5T PO; -ASPI-1450 PO
[2021-07-08 09:23] LABS: COVID AG,FIA SOURCE NASAL SWAB
[2021-07-08] MEDS ORDERED: KETOROLAC TROMETHAMINE 60 MG/2 ML VIAL IM ONE (10:15)
[2021-07-08 12:38] VITALS: BP 138/89
== END 2021-07-08 12:39 | disposition home or self-care (01) ==
LOC: EMS 08:46
DX: R51.9 Headache, unspecified (principal); I10 Essential (primary) hypertension; E78.00 Pure hypercholesterolemia, unspecified; E11.9 Type 2 diabetes mellitus without complications; Z88.2 Allergy status to sulfonamides; Z79.899 Other long term (current) drug therapy; Z79.4 Long term (current) use of insulin; Z20.822 Contact with and (suspected) exposure to COVID-19
CPT/HCPCS: 71045; 87426; 96372; 99284; J1885

== ENCOUNTER 2021-08-26 08:31 | Emergency (ER) | payer MEDICARE, MEDICAID ==
[~2021-08-26] VITALS: Ht 167.6 cm; Wt 103.6 kg
[2021-08-26 11:00] VITALS: BP 148/97
== END 2021-08-26 12:28 | disposition home or self-care (01) ==
LOC: EMS 08:31
DX: M79.645 Pain in left finger(s) (principal); I10 Essential (primary) hypertension; E11.9 Type 2 diabetes mellitus without complications; E78.00 Pure hypercholesterolemia, unspecified; Z88.2 Allergy status to sulfonamides; Z79.4 Long term (current) use of insulin; Z79.899 Other long term (current) drug therapy
CPT/HCPCS: 82962; 99283

== ENCOUNTER 2021-09-10 09:43 | Inpatient (IN) | payer MEDICARE, MEDICAID ==
[~2021-09-10] VITALS: Ht 172.7 cm; Wt 97.7 kg
[2021-09-10] MEDS ORDERED: ACETAMINOPHEN 500 MG TABLET PO ONE (10:00)
[2021-09-10] MEDS ORDERED: KETOROLAC TROMETHAMINE 30 MG/ML VIAL IVP ONE (10:00)
[2021-09-10] MEDS ORDERED: VANCOMYCIN HCL 1 GM/D5% WATER 200 ML IV ONE (10:00)
[2021-09-10] MEDS ORDERED: CefTRIAXone 1 GM/DEXTROSE 50 ML IV ONE (10:00)
[2021-09-10 10:27] LABS: BASOPHILS % (AUTO) 0.6 % (0.0-2.0); EOSINOPHILS % (AUTO) 0.8 % (1.0-6.0); HEMATOCRIT 42.6 % (41-53); HEMOGLOBIN 14.6 g/dL (13.5-17.5); LYMPHOCYTES # (AUTO) 2.2 K/uL (1.0-4.8); MEAN CORPUSCULAR HEMOGLOBIN 29.1 pg (26.0-34.0); MEAN CORPUSCULAR HGB CONC 34.4 G/dL (31.0-37.0); MEAN CORPUSCULAR VOLUME 85 fL (80-100); MONOCYTES # (AUTO) 0.7 K/uL (0.1-1.0); MONOCYTES % (AUTO) 6.8 % (2.0-9.0); NEUTROPHILS # (AUTO) 7.8 K/uL (1.8-7.7); NEUTROPHILS % (AUTO) 71.8 % (40.0-70.0); PLATELET COUNT (AUTO) 125 K/uL (150-450); RED BLOOD CELL COUNT(AUTO) 5.02 MIL/uL (4.50-5.90); RED CELL DISTRIBUTION WIDTH 14.6 % (11.5-14.5)
[2021-09-10 10:36] LABS: ANION GAP 11 mmol/L (8-16); CALCIUM, TOTAL 9.5 mg/dL (8.8-10.5); CARBON DIOXIDE 31 mmol/L (22-29); CHLORIDE 94 mmol/L (98-107); CREATININE 1.12 mg/dL (0.60-1.30); GLUCOSE,RANDOM 226 mg/dL (70-110); POTASSIUM 3.2 mmol/L (3.5-5.1); SODIUM SERUM 136 mmol/L (136-145); UREA NITROGEN, BLOOD 17 mg/dL (7-18)
[2021-09-10 10:37] LABS: GLOMERULAR FILTR. RATE CALC > 60 mL/min (>60)
[2021-09-10 10:44] LABS: ALANINE AMINOTRANSFERASE 26 U/L (12-78); ALBUMIN 3.7 g/dL (3.4-5.0); ALKALINE PHOSPHATASE 78 U/L (46-116); ASPARTATE AMINOTRANSFERASE 19 U/L (15-37); BILIRUBIN,TOTAL 0.4 mg/dL (0.1-1.0); C-REACTIVE PROTEIN QUANT 1.35 mg/dL (0.00-0.30); TOTAL PROTEIN, SERUM 8.2 g/dL (6.4-8.2)
[2021-09-10] MEDS ORDERED: SODIUM CHLORIDE 0.9% 1,000 ML IV ONE (11:00)
[2021-09-10 11:41] LABS: ERYTHROCYTE SEDIMENTATION RATE 56 MM/HR (0-15)
[2021-09-10 12:18] LABS: COVID AG,FIA SOURCE NASOPHARYNGEAL
[2021-09-10] MEDS ORDERED: ONDANSETRON HCL 4 MG/2 ML VIAL IVP PRN (13:00)
[2021-09-10] MEDS ORDERED: ACETAMINOPHEN 325 MG TABLET PO PRN ×2 (13:00→14:15)
[2021-09-10] MEDS ORDERED: 0.9% SODIUM CHLORIDE 10 ML SYRINGE IVP PRN (13:00)
[2021-09-10] MEDS ORDERED: OxyCODONE HCL/ACETAMINOPHEN 5-325 MG TABLET PO PRN (14:15)
[2021-09-10] MEDS ORDERED: POTASSIUM CHLORIDE 20 MEQ ER TABLET PO PRN (14:15)
[2021-09-10] MEDS ORDERED: DEXTROSE 50%-WATER 25 GM/50 ML SYRINGE IVP PRN (14:15)
[2021-09-10] MEDS ORDERED: MORPHINE SULFATE 2 MG/ML SYRINGE IVP PRN (14:15)
[2021-09-10 14:18] VITALS: BP 121/68
[2021-09-10] MEDS ORDERED: PNEUMOCOCCAL VACCINE POLYVALENT 0.5 ML VIAL [PPSV23] IM. ONE (16:45)
[2021-09-10 18:50] LABS: GLUCOMETER DEV NAME(LOC) 6S.1B; GLUCOSE,POINT OF CARE 131 MG/DL (70-110)
[2021-09-10 19:35] VITALS: BP 124/71
[2021-09-10] MEDS ORDERED: INSULIN GLARGINE,HUM.REC.ANLOG 100 UNITS/ML SQ SCH (21:00)
[2021-09-10] MEDS ORDERED: SIMVASTATIN 40 MG TABLET PO SCH (21:00)
[2021-09-10] MEDS: VANCOMYCIN HCL 1 GM/D5% WATER 200 ML IV SCH (21:22)
[2021-09-10] MEDS: DOCUSATE SODIUM 100 MG CAPSULE PO SCH (21:23)
[2021-09-10] MEDS: INSULIN LISPRO 100 UNITS/ML SQ PRN (21:25)
[2021-09-10] MEDS ORDERED: GADOTERATE MEGLUMINE 10 MMOL/20 ML VIAL IVP ONE (21:47)
[2021-09-10 21:56] LABS: GLUCOMETER DEV NAME(LOC) 6N.2; GLUCOSE,POINT OF CARE 356 MG/DL (70-110)
[2021-09-11] MEDS: POTASSIUM CHL 10 MEQ/WATER 50 ML IV PRN ×3 (01:31→04:06)
[2021-09-11 05:00] VITALS: BP 100/66
[2021-09-11] MEDS: INSULIN LISPRO 100 UNITS/ML SQ PRN ×2 (06:19→12:01)
[2021-09-11 06:46] LABS: GLUCOMETER DEV NAME(LOC) 6S.1B; GLUCOSE,POINT OF CARE 163 MG/DL (70-110)
[2021-09-11 07:08] LABS: BASOPHILS % (AUTO) 0.3 % (0.0-2.0); EOSINOPHILS % (AUTO) 0.4 % (1.0-6.0); HEMATOCRIT 39.3 % (41-53); HEMOGLOBIN 13.5 g/dL (13.5-17.5); LYMPHOCYTES # (AUTO) 1.9 K/uL (1.0-4.8); LYMPHOCYTES % (AUTO) 15.7 % (22.0-44.0); MEAN CORPUSCULAR HEMOGLOBIN 29.4 pg (26.0-34.0); MEAN CORPUSCULAR HGB CONC 34.4 G/dL (31.0-37.0); MEAN CORPUSCULAR VOLUME 86 fL (80-100); MONOCYTES # (AUTO) 0.8 K/uL (0.1-1.0); MONOCYTES % (AUTO) 6.1 % (2.0-9.0); NEUTROPHILS # (AUTO) 9.5 K/uL (1.8-7.7); NEUTROPHILS % (AUTO) 77.5 % (40.0-70.0); PLATELET COUNT (AUTO) 126 K/uL (150-450); RED BLOOD CELL COUNT(AUTO) 4.59 MIL/uL (4.50-5.90); RED CELL DISTRIBUTION WIDTH 14.9 % (11.5-14.5)
[2021-09-11 07:29] LABS: HEMOGLOBIN A1C 7.5 % (3.8-5.6)
[2021-09-11 07:33] LABS: ALANINE AMINOTRANSFERASE 20 U/L (12-78); ALKALINE PHOSPHATASE 67 U/L (46-116); ANION GAP 7 mmol/L (8-16); ASPARTATE AMINOTRANSFERASE 14 U/L (15-37); BILIRUBIN,TOTAL 0.5 mg/dL (0.1-1.0); CARBON DIOXIDE 31 mmol/L (22-29); CHLORIDE 98 mmol/L (98-107); CHOL/HDL RATIO 2.8 (4.2-7.3); CHOLESTEROL 140 mg/dL (131-200); CREATININE 1.05 mg/dL (0.60-1.30); GLUCOSE,RANDOM 146 mg/dL (70-110); HDL CHOLESTEROL 50 mg/dL (40-60); LDL CHOL (CALC.) 59 mg/dL (0-130); POTASSIUM 3.5 mmol/L (3.5-5.1); SODIUM SERUM 136 mmol/L (136-145); TOTAL PROTEIN, SERUM 7.4 g/dL (6.4-8.2); TRIGLYCERIDES 154 mg/dL (15-150); UREA NITROGEN, BLOOD 18 mg/dL (7-18)
[2021-09-11 07:36] LABS: GLOMERULAR FILTR. RATE CALC > 60 mL/min (>60)
[2021-09-11 07:47] LABS: URIC ACID 7.2 mg/dL (2.6-7.2)
[2021-09-11] MEDS ORDERED: FAMOTIDINE 20 MG TABLET PO SCH (09:00)
[2021-09-11] MEDS: DOCUSATE SODIUM 100 MG CAPSULE PO SCH (09:04)
[2021-09-11] MEDS: VANCOMYCIN HCL 1 GM/D5% WATER 200 ML IV SCH (09:05)
[2021-09-11] MEDS ORDERED: CLIN300C3 PO (11:00)
[2021-09-11 12:41] LABS: GLUCOMETER DEV NAME(LOC) 6N.2; GLUCOSE,POINT OF CARE 172 MG/DL (70-110)
[2021-09-11] MEDS ORDERED: CefTRIAXone 1 GM/DEXTROSE 50 ML IV SCH (13:00)
== END 2021-09-11 13:20 | disposition home or self-care (01) | DRG 558 ==
LOC: EMS 09:51 → 6S 12:52
PROVIDERS: ADMIT Internal Medicine; ATTEND Internal Medicine
DX: M65.842 Other synovitis and tenosynovitis, left hand (principal); E11.51 Type 2 diabetes mellitus with diabetic peripheral angiopathy without gangrene; E78.5 Hyperlipidemia, unspecified; E66.9 Obesity, unspecified; I25.10 Atherosclerotic heart disease of native coronary artery without angina pectoris; E11.40 Type 2 diabetes mellitus with diabetic neuropathy, unspecified; E78.00 Pure hypercholesterolemia, unspecified; M17.0 Bilateral primary osteoarthritis of knee; I11.9 Hypertensive heart disease without heart failure; Z20.822 Contact with and (suspected) exposure to COVID-19; E87.6 Hypokalemia; L03.012 Cellulitis of left finger; Z85.820 Personal history of malignant melanoma of skin; Z68.32 Body mass index [BMI] 32.0-32.9, adult; Z88.2 Allergy status to sulfonamides; Z88.8 Allergy status to other drugs, medicaments and biological substances; Z79.4 Long term (current) use of insulin; Z99.3 Dependence on wheelchair
CPT/HCPCS: 73220; 80053; 80061; 82962; 83036; 84132; 84550; 85025; 85651; 86140; 87040; 99285; J0696; J1815; J1885; J3370; J3480; J7030

== ENCOUNTER 2021-10-01 10:49 | Inpatient (IN) | payer MEDICARE, MEDICAID ==
[~2021-10-01] VITALS: Ht 167.6 cm; Wt 110.0 kg
[~2021-10-01 10:49] MED LIST changes: -CETI-450 PO; +CLIN300C3 PO; -INSU100V SQ; -METF-446 PO
[2021-10-01 11:49] LABS: BASOPHILS % (AUTO) 0.5 % (0.0-2.0); EOSINOPHILS % (AUTO) 2.2 % (1.0-6.0); HEMATOCRIT 39.5 % (41-53); HEMOGLOBIN 13.4 g/dL (13.5-17.5); LYMPHOCYTES # (AUTO) 2.5 K/uL (1.0-4.8); LYMPHOCYTES % (AUTO) 25.8 % (22.0-44.0); MEAN CORPUSCULAR HEMOGLOBIN 29.1 pg (26.0-34.0); MEAN CORPUSCULAR VOLUME 86 fL (80-100); MONOCYTES # (AUTO) 0.8 K/uL (0.1-1.0); MONOCYTES % (AUTO) 7.9 % (2.0-9.0); NEUTROPHILS # (AUTO) 6.1 K/uL (1.8-7.7); NEUTROPHILS % (AUTO) 63.6 % (40.0-70.0); PLATELET COUNT (AUTO) 145 K/uL (150-450); RED BLOOD CELL COUNT(AUTO) 4.62 MIL/uL (4.50-5.90); RED CELL DISTRIBUTION WIDTH 14.4 % (11.5-14.5)
[2021-10-01 12:02] LABS: ANION GAP 6 mmol/L (8-16); CALCIUM, TOTAL 8.8 mg/dL (8.8-10.5); CARBON DIOXIDE 32 mmol/L (22-29); CHLORIDE 96 mmol/L (98-107); CREATININE 0.99 mg/dL (0.60-1.30); GLUCOSE,RANDOM 166 mg/dL (70-110); POTASSIUM 3.4 mmol/L (3.5-5.1); SODIUM SERUM 134 mmol/L (136-145); UREA NITROGEN, BLOOD 16 mg/dL (7-18)
[2021-10-01 12:03] LABS: C-REACTIVE PROTEIN QUANT 0.45 mg/dL (0.00-0.30)
[2021-10-01 12:04] LABS: GLOMERULAR FILTR. RATE CALC > 60 mL/min (>60)
[2021-10-01 12:30] LABS: COVID AG,FIA SOURCE NASOPHARYNGEAL
[2021-10-01 13:09] LABS: ERYTHROCYTE SEDIMENTATION RATE 59 MM/HR (0-15)
[2021-10-01] MEDS ORDERED: GADOTERATE MEGLUMINE 10 MMOL/20 ML VIAL IVP ONE (13:49)
[2021-10-01] MEDS ORDERED: VANCOMYCIN 1GM/WATER(PEG/NADA) 200 ML IV ONE (16:15)
[2021-10-01] MEDS ORDERED: ACETAMINOPHEN 325 MG TABLET PO PRN (17:30)
[2021-10-01] MEDS ORDERED: DEXTROSE 50%-WATER 25 GM/50 ML SYRINGE IVP PRN (17:30)
[2021-10-01] MEDS ORDERED: ONDANSETRON HCL 4 MG/2 ML VIAL IVP PRN (17:30)
[2021-10-01] MEDS ORDERED: POTASSIUM CHL 10 MEQ/WATER 50 ML IV PRN (17:30)
[2021-10-01] MEDS ORDERED: OxyCODONE HCL/ACETAMINOPHEN 5-325 MG TABLET PO PRN (17:30)
[2021-10-01] MEDS: POTASSIUM CHLORIDE 20 MEQ ER TABLET PO PRN (19:35)
[2021-10-01] MEDS: OxyCODONE HCL/ACETAMINOPHEN 5-325 MG TABLET PO PRN (19:36)
[2021-10-01 21:30] VITALS: BP 136/92
[2021-10-01] MEDS: DOCUSATE SODIUM 100 MG CAPSULE PO SCH (22:50)
[2021-10-01] MEDS: INSULIN LISPRO 100 UNITS/ML SQ PRN (22:53)
[2021-10-01] MEDS: INSULIN GLARGINE,HUM.REC.ANLOG 100 UNITS/ML SQ SCH (22:54)
[2021-10-01 23:36] LABS: GLUCOMETER DEV NAME(LOC) 6N.1; GLUCOSE,POINT OF CARE 278 MG/DL (70-110)
[2021-10-02] MEDS: OxyCODONE HCL/ACETAMINOPHEN 5-325 MG TABLET PO PRN ×3 (06:10→21:30)
[2021-10-02 07:30] LABS: GLUCOMETER DEV NAME(LOC) 6S.1B; GLUCOSE,POINT OF CARE 134 MG/DL (70-110)
[2021-10-02] MEDS: DOCUSATE SODIUM 100 MG CAPSULE PO SCH ×2 (09:01→21:30)
[2021-10-02] MEDS: FAMOTIDINE 20 MG TABLET PO SCH (09:01)
[2021-10-02 09:02] VITALS: BP 116/63
[2021-10-02] MEDS: INSULIN LISPRO 100 UNITS/ML SQ PRN ×3 (11:38→21:36)
[2021-10-02 13:16] LABS: GLUCOMETER DEV NAME(LOC) 6S.1B; GLUCOSE,POINT OF CARE 235 MG/DL (70-110)
[2021-10-02] MEDS ORDERED: VANCOMYCIN HCL 1 GM in DEXTROSE 5%-WATER 250 ML IV ONE ×2 (14:30→23:59)
[2021-10-02] MEDS ORDERED: SODIUM CHLORIDE 0.9% 250 ML IV ONE (14:46)
[2021-10-02] MEDS ORDERED: VANCOMYCIN 1GM/WATER(PEG/NADA) 200 ML IV ONE ×2 (15:00→23:00)
[2021-10-02] MEDS: CEFEPIME HCL 2 GM in DEXTROSE 5%-WATER 50 ML IV SCH ×2 (15:41→23:14)
[2021-10-02 15:42] VITALS: BP 129/75
[2021-10-02 19:36] LABS: GLUCOMETER DEV NAME(LOC) 6N.2; GLUCOSE,POINT OF CARE 181 MG/DL (70-110)
[2021-10-02 20:01] VITALS: BP 110/64
[2021-10-02] MEDS: INSULIN GLARGINE,HUM.REC.ANLOG 100 UNITS/ML SQ SCH (21:35)
[2021-10-02] MEDS: BENZONATATE 100 MG CAPSULE PO PRN (23:57)
[2021-10-03 05:37] VITALS: BP 131/74
[2021-10-03] MEDS: INSULIN LISPRO 100 UNITS/ML SQ PRN ×4 (06:35→21:52)
[2021-10-03 06:44] LABS: ANION GAP 4 mmol/L (8-16); CALCIUM, TOTAL 8.6 mg/dL (8.8-10.5); CARBON DIOXIDE 35 mmol/L (22-29); CHLORIDE 99 mmol/L (98-107); GLOMERULAR FILTR. RATE CALC > 60 mL/min (>60); GLUCOSE,RANDOM 167 mg/dL (70-110); POTASSIUM 3.7 mmol/L (3.5-5.1); SODIUM SERUM 138 mmol/L (136-145); UREA NITROGEN, BLOOD 14 mg/dL (7-18)
[2021-10-03 06:46] LABS: GLUCOMETER DEV NAME(LOC) 6N.2; GLUCOSE,POINT OF CARE 207 MG/DL (70-110)
[2021-10-03 07:16] LABS: GLUCOMETER DEV NAME(LOC) 6S.1B; GLUCOSE,POINT OF CARE 155 MG/DL (70-110)
[2021-10-03] MEDS: CEFEPIME HCL 2 GM in DEXTROSE 5%-WATER 50 ML IV SCH ×2 (07:32→15:08)
[2021-10-03] MEDS ORDERED: VANCOMYCIN HCL 1 GM in DEXTROSE 5%-WATER 250 ML IV SCH (08:00)
[2021-10-03] MEDS: DOCUSATE SODIUM 100 MG CAPSULE PO SCH ×2 (08:41→21:43)
[2021-10-03] MEDS: BENZONATATE 100 MG CAPSULE PO PRN (08:41)
[2021-10-03] MEDS: VANCOMYCIN 1GM/WATER(PEG/NADA) 200 ML IV SCH ×2 (08:42→21:22)
[2021-10-03] MEDS: FAMOTIDINE 20 MG TABLET PO SCH (08:42)
[2021-10-03 09:38] VITALS: BP 128/76
[2021-10-03 12:31] LABS: GLUCOMETER DEV NAME(LOC) 6N.2; GLUCOSE,POINT OF CARE 202 MG/DL (70-110)
[2021-10-03 16:38] VITALS: BP 132/72
[2021-10-03] MEDS: OxyCODONE HCL/ACETAMINOPHEN 5-325 MG TABLET PO PRN (18:46)
[2021-10-03 20:21] LABS: GLUCOMETER DEV NAME(LOC) 6S.1B; GLUCOSE,POINT OF CARE 189 MG/DL (70-110)
[2021-10-03 20:51] VITALS: BP 142/79
[2021-10-03] MEDS: INSULIN GLARGINE,HUM.REC.ANLOG 100 UNITS/ML SQ SCH (21:53)
[2021-10-03 22:11] LABS: GLUCOMETER DEV NAME(LOC) 6N.1; GLUCOSE,POINT OF CARE 355 MG/DL (70-110)
[2021-10-04] MEDS: CEFEPIME HCL 2 GM in DEXTROSE 5%-WATER 50 ML IV SCH ×4 (00:25→23:00)
[2021-10-04 04:47] VITALS: BP 124/77
[2021-10-04] MEDS: INSULIN LISPRO 100 UNITS/ML SQ PRN ×4 (06:19→21:14)
[2021-10-04 06:44] LABS: ANION GAP 7 mmol/L (8-16); CALCIUM, TOTAL 8.6 mg/dL (8.8-10.5); CARBON DIOXIDE 28 mmol/L (22-29); CHLORIDE 101 mmol/L (98-107); CREATININE 0.92 mg/dL (0.60-1.30); GLUCOSE,RANDOM 240 mg/dL (70-110); POTASSIUM 3.4 mmol/L (3.5-5.1); SODIUM SERUM 136 mmol/L (136-145); UREA NITROGEN, BLOOD 16 mg/dL (7-18); VANCOMYCIN,RANDOM 18.3 mcg/mL (25.0-50.0)
[2021-10-04 06:49] LABS: GLOMERULAR FILTR. RATE CALC > 60 mL/min (>60)
[2021-10-04] MEDS: POTASSIUM CHLORIDE 20 MEQ ER TABLET PO PRN (08:18)
[2021-10-04] MEDS: FAMOTIDINE 20 MG TABLET PO SCH (08:18)
[2021-10-04] MEDS: DOCUSATE SODIUM 100 MG CAPSULE PO SCH ×2 (08:18→20:39)
[2021-10-04] MEDS: VANCOMYCIN 1GM/WATER(PEG/NADA) 200 ML IV SCH ×2 (08:24→20:39)
[2021-10-04 08:42] VITALS: BP 131/82
[2021-10-04 12:06] LABS: GLUCOMETER DEV NAME(LOC) 6N.1; GLUCOSE,POINT OF CARE 238 MG/DL (70-110)
[2021-10-04 16:21] VITALS: BP 137/81
[2021-10-04 17:46] LABS: GLUCOMETER DEV NAME(LOC) 6N.2; GLUCOSE,POINT OF CARE 262 MG/DL (70-110)
[2021-10-04 17:51] LABS: GLUCOMETER DEV NAME(LOC) 6N.2; GLUCOSE,POINT OF CARE 291 MG/DL (70-110)
[2021-10-04 19:20] VITALS: BP 157/86
[2021-10-04] MEDS: INSULIN GLARGINE,HUM.REC.ANLOG 100 UNITS/ML SQ SCH (21:13)
[2021-10-04 21:31] LABS: GLUCOMETER DEV NAME(LOC) 6S.1B; GLUCOSE,POINT OF CARE 286 MG/DL (70-110)
[2021-10-05 04:55] VITALS: BP 149/90
[2021-10-05] MEDS: INSULIN LISPRO 100 UNITS/ML SQ PRN ×4 (05:41→20:30)
[2021-10-05 06:02] LABS: GLUCOMETER DEV NAME(LOC) 6S.1B; GLUCOSE,POINT OF CARE 174 MG/DL (70-110)
[2021-10-05 06:28] LABS: ANION GAP 5 mmol/L (8-16); CALCIUM, TOTAL 8.8 mg/dL (8.8-10.5); CARBON DIOXIDE 28 mmol/L (22-29); CHLORIDE 104 mmol/L (98-107); CREATININE 0.82 mg/dL (0.60-1.30); GLUCOSE,RANDOM 185 mg/dL (70-110); POTASSIUM 3.5 mmol/L (3.5-5.1); SODIUM SERUM 137 mmol/L (136-145); UREA NITROGEN, BLOOD 16 mg/dL (7-18)
[2021-10-05 06:29] LABS: GLOMERULAR FILTR. RATE CALC > 60 mL/min (>60)
[2021-10-05] MEDS: CEFEPIME HCL 2 GM in DEXTROSE 5%-WATER 50 ML IV SCH ×3 (06:29→22:30)
[2021-10-05 08:20] VITALS: BP 131/79
[2021-10-05] MEDS: FAMOTIDINE 20 MG TABLET PO SCH (08:27)
[2021-10-05] MEDS: DOCUSATE SODIUM 100 MG CAPSULE PO SCH ×2 (08:27→20:19)
[2021-10-05] MEDS: VANCOMYCIN 1GM/WATER(PEG/NADA) 200 ML IV SCH ×2 (08:27→20:19)
[2021-10-05 12:41] LABS: GLUCOMETER DEV NAME(LOC) 6N.1; GLUCOSE,POINT OF CARE 229 MG/DL (70-110)
[2021-10-05 16:11] VITALS: BP 154/93
[2021-10-05 17:41] LABS: GLUCOMETER DEV NAME(LOC) 6N.1; GLUCOSE,POINT OF CARE 234 MG/DL (70-110)
[2021-10-05 19:29] VITALS: BP 136/90
[2021-10-05] MEDS: INSULIN GLARGINE,HUM.REC.ANLOG 100 UNITS/ML SQ SCH (20:30)
[2021-10-05 21:26] LABS: GLUCOMETER DEV NAME(LOC) 6N.1; GLUCOSE,POINT OF CARE 391 MG/DL (70-110)
[2021-10-06 04:13] VITALS: BP 151/91
[2021-10-06] MEDS: CEFEPIME HCL 2 GM in DEXTROSE 5%-WATER 50 ML IV SCH ×3 (05:38→23:26)
[2021-10-06] MEDS: INSULIN LISPRO 100 UNITS/ML SQ PRN ×4 (05:57→21:07)
[2021-10-06 06:06] LABS: GLUCOMETER DEV NAME(LOC) 6N.1; GLUCOSE,POINT OF CARE 223 MG/DL (70-110)
[2021-10-06 06:13] LABS: ANION GAP 9 mmol/L (8-16); CALCIUM, TOTAL 8.8 mg/dL (8.8-10.5); CARBON DIOXIDE 25 mmol/L (22-29); CHLORIDE 103 mmol/L (98-107); CREATININE 0.89 mg/dL (0.60-1.30); GLUCOSE,RANDOM 236 mg/dL (70-110); POTASSIUM 3.8 mmol/L (3.5-5.1); SODIUM SERUM 137 mmol/L (136-145); UREA NITROGEN, BLOOD 18 mg/dL (7-18)
[2021-10-06 06:14] LABS: GLOMERULAR FILTR. RATE CALC > 60 mL/min (>60)
[2021-10-06 06:31] LABS: VANCOMYCIN,RANDOM 19.1 mcg/mL (25.0-50.0)
[2021-10-06] MEDS: DOCUSATE SODIUM 100 MG CAPSULE PO SCH ×2 (07:49→21:03)
[2021-10-06] MEDS: FAMOTIDINE 20 MG TABLET PO SCH (07:49)
[2021-10-06] MEDS: VANCOMYCIN 1GM/WATER(PEG/NADA) 200 ML IV SCH ×2 (07:49→21:01)
[2021-10-06 07:55] VITALS: BP 140/83
[2021-10-06 13:32] LABS: GLUCOMETER DEV NAME(LOC) 6S.1B; GLUCOSE,POINT OF CARE 284 MG/DL (70-110)
[2021-10-06 15:48] VITALS: BP 142/93
[2021-10-06 18:41] LABS: GLUCOMETER DEV NAME(LOC) 6S.1B; GLUCOSE,POINT OF CARE 237 MG/DL (70-110)
[2021-10-06 19:55] VITALS: BP 148/91
[2021-10-06] MEDS: INSULIN GLARGINE,HUM.REC.ANLOG 100 UNITS/ML SQ SCH (21:08)
[2021-10-06 23:11] LABS: GLUCOMETER DEV NAME(LOC) 6S.1B; GLUCOSE,POINT OF CARE 304 MG/DL (70-110)
[2021-10-07 04:35] VITALS: BP 98/57
[2021-10-07] MEDS: INSULIN LISPRO 100 UNITS/ML SQ PRN ×3 (05:49→17:03)
[2021-10-07] MEDS: CEFEPIME HCL 2 GM in DEXTROSE 5%-WATER 50 ML IV SCH ×2 (05:54→14:49)
[2021-10-07 06:36] LABS: GLUCOMETER DEV NAME(LOC) 6S.1B; GLUCOSE,POINT OF CARE 188 MG/DL (70-110)
[2021-10-07 07:37] VITALS: BP 153/92
[2021-10-07 07:37] LABS: ALANINE AMINOTRANSFERASE 27 U/L (12-78); ALKALINE PHOSPHATASE 69 U/L (46-116); ANION GAP 10 mmol/L (8-16); ASPARTATE AMINOTRANSFERASE 19 U/L (15-37); BILIRUBIN,TOTAL 0.4 mg/dL (0.1-1.0); CARBON DIOXIDE 26 mmol/L (22-29); CHLORIDE 101 mmol/L (98-107); CREATININE 0.85 mg/dL (0.60-1.30); GLUCOSE,RANDOM 196 mg/dL (70-110); POTASSIUM 3.5 mmol/L (3.5-5.1); SODIUM SERUM 137 mmol/L (136-145); TOTAL PROTEIN, SERUM 7.5 g/dL (6.4-8.2); UREA NITROGEN, BLOOD 18 mg/dL (7-18)
[2021-10-07 07:42] LABS: GLOMERULAR FILTR. RATE CALC > 60 mL/min (>60)
[2021-10-07] MEDS: DOCUSATE SODIUM 100 MG CAPSULE PO SCH (08:14)
[2021-10-07] MEDS: VANCOMYCIN 1GM/WATER(PEG/NADA) 200 ML IV SCH (08:14)
[2021-10-07] MEDS: FAMOTIDINE 20 MG TABLET PO SCH (08:14)
[2021-10-07] MEDS ORDERED: CEFE2I IV (12:35)
[2021-10-07] MEDS ORDERED: FAMO20 PO (12:36)
[2021-10-07] MEDS ORDERED: DOCU-270 PO (12:36)
[2021-10-07] MEDS ORDERED: INSLAN SQ (12:37)
[2021-10-07] MEDS ORDERED: VANC1IV IV (12:38)
[2021-10-07] MEDS ORDERED: ACET650S24 PR (12:39)
[2021-10-07] MEDS ORDERED: BENZ-70 PO (12:40)
[2021-10-07] MEDS ORDERED: INSU100V SQ (12:41)
[2021-10-07] MEDS ORDERED: PERCT PO ×2 (12:44→12:45)
[2021-10-07] MEDS ORDERED: POTA-206 PO (12:46)
[2021-10-07] MEDS ORDERED: METO25 PO (13:00)
[2021-10-07] MEDS ORDERED: SIMV-261 PO (13:00)
[2021-10-07] MEDS ORDERED: APIX2.5T PO (13:00)
[2021-10-07 14:27] LABS: COVID AG,FIA SOURCE NASAL SWAB
[2021-10-07 15:29] VITALS: BP 142/89
[2021-10-07 17:07] LABS: GLUCOMETER DEV NAME(LOC) 6N.2; GLUCOSE,POINT OF CARE 227 MG/DL (70-110)
[2021-10-07 17:42] LABS: GLUCOMETER DEV NAME(LOC) 6N.1; GLUCOSE,POINT OF CARE 284 MG/DL (70-110)
[2021-10-08] MEDS ORDERED: VANCOMYCIN HCL 1 GM in DEXTROSE 5%-WATER 250 ML IV SCH (08:00)
== END 2021-10-07 18:30 | DRG 638 ==
LOC: EMS 10:51 → 6S 18:19
PROVIDERS: ADMIT Internal Medicine; ATTEND Internal Medicine
DX: E11.69 Type 2 diabetes mellitus with other specified complication (principal); M86.8X4 Other osteomyelitis, hand; Z20.822 Contact with and (suspected) exposure to COVID-19; F17.210 Nicotine dependence, cigarettes, uncomplicated; E78.00 Pure hypercholesterolemia, unspecified; E66.9 Obesity, unspecified; E11.40 Type 2 diabetes mellitus with diabetic neuropathy, unspecified; E87.6 Hypokalemia; L08.9 Local infection of the skin and subcutaneous tissue, unspecified; Z83.3 Family history of diabetes mellitus; Z88.2 Allergy status to sulfonamides; Z88.8 Allergy status to other drugs, medicaments and biological substances; Z85.820 Personal history of malignant melanoma of skin; Z68.39 Body mass index [BMI] 39.0-39.9, adult
CPT/HCPCS: 71045; 73220; 80048; 80053; 80202; 82962; 85025; 85651; 86140; 87040; 97165; 99285; G0378; J0692; J1815; J3370; J7050; J7060; Q9967; 36415-L1; 36415-TC

== ENCOUNTER 2021-10-24 13:13 | Emergency (ER) | payer MEDICARE, MEDICAID ==
[~2021-10-24] VITALS: Ht 167.6 cm; Wt 103.6 kg
[~2021-10-24 13:13] MED LIST changes: +ACET650S24 PR; +BENZ-70 PO; +CEFE2I IV; -CLIN300C3 PO; +FAMO20 PO; -FURO20 PO; +INSU100V SQ; +PERCT PO; -POTA-92 PO; +VANC1IV IV
[2021-10-24 13:46] LABS: GLUCOSE,POINT OF CARE 218 MG/DL (70-110)
[2021-10-24] MEDS ORDERED: GADOTERATE MEGLUMINE 10 MMOL/20 ML VIAL IVP ONE (15:41)
[2021-10-24 15:49] LABS: BASOPHILS % (AUTO) 0.3 % (0.0-2.0); EOSINOPHILS % (AUTO) 3.4 % (1.0-6.0); HEMATOCRIT 41.2 % (41-53); HEMOGLOBIN 13.8 g/dL (13.5-17.5); LYMPHOCYTES # (AUTO) 2.8 K/uL (1.0-4.8); LYMPHOCYTES % (AUTO) 31.4 % (22.0-44.0); MEAN CORPUSCULAR HEMOGLOBIN 28.9 pg (26.0-34.0); MEAN CORPUSCULAR HGB CONC 33.5 G/dL (31.0-37.0); MEAN CORPUSCULAR VOLUME 86 fL (80-100); MONOCYTES % (AUTO) 10.5 % (2.0-9.0); NEUTROPHILS # (AUTO) 4.9 K/uL (1.8-7.7); NEUTROPHILS % (AUTO) 54.4 % (40.0-70.0); PLATELET COUNT (AUTO) 134 K/uL (150-450); RED BLOOD CELL COUNT(AUTO) 4.76 MIL/uL (4.50-5.90); RED CELL DISTRIBUTION WIDTH 14.5 % (11.5-14.5)
[2021-10-24 15:58] LABS: ANION GAP 7 mmol/L (8-16); CALCIUM, TOTAL 8.9 mg/dL (8.8-10.5); CARBON DIOXIDE 29 mmol/L (22-29); CHLORIDE 101 mmol/L (98-107); CREATININE 1.09 mg/dL (0.60-1.30); GLUCOSE,RANDOM 212 mg/dL (70-110); POTASSIUM 4.1 mmol/L (3.5-5.1); SODIUM SERUM 137 mmol/L (136-145); UREA NITROGEN, BLOOD 18 mg/dL (7-18)
[2021-10-24 15:59] LABS: GLOMERULAR FILTR. RATE CALC > 60 mL/min (>60)
[2021-10-24 16:01] LABS: C-REACTIVE PROTEIN QUANT 0.11 mg/dL (0.00-0.30)
[2021-10-24 16:48] LABS: ERYTHROCYTE SEDIMENTATION RATE 55 MM/HR (0-15)
[2021-10-24 19:31] VITALS: BP 147/88
== END 2021-10-24 20:53 | disposition home or self-care (01) ==
LOC: EMS 13:13
DX: M86.9 Osteomyelitis, unspecified (principal); E11.9 Type 2 diabetes mellitus without complications; E78.00 Pure hypercholesterolemia, unspecified; I10 Essential (primary) hypertension; C43.70 Malignant melanoma of unspecified lower limb, including hip; B35.1 Tinea unguium; Q82.8 Other specified congenital malformations of skin; Z87.898 Personal history of other specified conditions; Z98.890 Other specified postprocedural states; Z88.8 Allergy status to other drugs, medicaments and biological substances; Z88.2 Allergy status to sulfonamides
CPT/HCPCS: 36415; 73223; 80048; 82962; 85025; 85651; 86140; 99285; A9575

== ENCOUNTER 2021-12-22 21:42 | Emergency (ER) | payer MEDICARE, MEDICAID ==
[~2021-12-22] VITALS: Ht 167.6 cm; Wt 99.1 kg
[2021-12-22 23:15] LABS: APPEARANCE,URINE TURBID (CLEAR); BILIRUBIN,URINE NEGATIVE (NEGATIVE); GLUCOSE, URINE (UA) 300-500 mg/dL (NEGATIVE); KETONES,URINE NEGATIVE (NEGATIVE); LEUKOCYTE ESTERASE ,URINE LARGE (NEGATIVE); NITRATE,URINE NEGATIVE (NEGATIVE); OCCULT BLOOD,URINE MODERATE (NEGATIVE); PH,URINE 8.5 (5.0-8.0); PROTEIN,URINE 300-600,SEE CONFIRM mg/dL (NEGATIVE); SPECIFIC GRAVITIY, URINE 1.015 (1.003-1.030); UROBILINOGEN,URINE <=1.0 mg/dL (<=1.0)
[2021-12-22 23:27] LABS: BACTERIA,URINE Many /HPF (None Seen); SULFOSALICYLIC ACID,URINE 1+ (Negative); TRIPLE PHOSPHATE CRYSTAL,UR Moderate /LPF (None Seen)
[2021-12-22 23:35] VITALS: BP 135/77
[2021-12-22] MEDS ORDERED: CEPHALEXIN MONOHYDRATE 500 MG CAPSULE PO ONE (23:45)
[2021-12-22] MEDS ORDERED: CEPH-558 PO (23:49)
== END 2021-12-23 01:11 | disposition home or self-care (01) ==
LOC: EMS 21:42
DX: N39.0 Urinary tract infection, site not specified (principal); E11.9 Type 2 diabetes mellitus without complications; E78.00 Pure hypercholesterolemia, unspecified; I10 Essential (primary) hypertension; I99.8 Other disorder of circulatory system; B35.1 Tinea unguium; Z87.2 Personal history of diseases of the skin and subcutaneous tissue; Z98.890 Other specified postprocedural states; Z85.820 Personal history of malignant melanoma of skin; Z88.8 Allergy status to other drugs, medicaments and biological substances; Z88.2 Allergy status to sulfonamides
CPT/HCPCS: 81001; 81002; 87086; 99283

== ENCOUNTER 2022-02-23 09:51 | Emergency (ER) | payer MEDICARE, MEDICAID ==
[~2022-02-23] VITALS: Ht 167.6 cm; Wt 77.3 kg
[~2022-02-23 09:51] MED LIST changes: -CEFE2I IV; +CEPH-558 PO; -VANC1IV IV
[2022-02-23 10:43] LABS: BASOPHILS % (AUTO) 0.5 % (0.0-2.0); EOSINOPHILS % (AUTO) 0.4 % (1.0-6.0); HEMATOCRIT 41.8 % (41-53); HEMOGLOBIN 14.2 g/dL (13.5-17.5); LYMPHOCYTES # (AUTO) 1.9 K/uL (1.0-4.8); LYMPHOCYTES % (AUTO) 11.4 % (22.0-44.0); MEAN CORPUSCULAR HEMOGLOBIN 28.2 pg (26.0-34.0); MEAN CORPUSCULAR HGB CONC 33.8 G/dL (31.0-37.0); MEAN CORPUSCULAR VOLUME 83 fL (80-100); MONOCYTES # (AUTO) 1.1 K/uL (0.1-1.0); MONOCYTES % (AUTO) 6.6 % (2.0-9.0); NEUTROPHILS # (AUTO) 13.4 K/uL (1.8-7.7); NEUTROPHILS % (AUTO) 81.1 % (40.0-70.0); PLATELET COUNT (AUTO) 109 K/uL (150-450); RED BLOOD CELL COUNT(AUTO) 5.02 MIL/uL (4.50-5.90); RED CELL DISTRIBUTION WIDTH 15.3 % (11.5-14.5)
[2022-02-23 11:14] LABS: CALCIUM, TOTAL 9.1 mg/dL (8.8-10.5); CREATININE 1.52 mg/dL (0.60-1.30); POTASSIUM 3.3 mmol/L (3.5-5.1)
[2022-02-23 11:20] LABS: ALBUMIN 3.4 g/dL (3.4-5.0); BILIRUBIN,TOTAL 0.7 mg/dL (0.1-1.0); TOTAL PROTEIN, SERUM 7.9 g/dL (6.4-8.2)
[2022-02-23] MEDS ORDERED: APIX2.5T PO (11:24)
[2022-02-23] MEDS ORDERED: FURO40 PO (11:24)
[2022-02-23 11:30] VITALS: BP 144/71
[2022-02-23] MEDS ORDERED: CEPHALEXIN MONOHYDRATE 500 MG CAPSULE PO ONE (12:00)
[2022-02-23] MEDS ORDERED: CLIN-142 PO (12:36)
[2022-02-23] MEDS ORDERED: BACITRACIN 28 GM OINTMENT TP ONE (13:00)
== END 2022-02-23 13:03 | disposition home or self-care (01) ==
LOC: EMS 09:51
DX: L03.116 Cellulitis of left lower limb (principal); M25.511 Pain in right shoulder; M25.512 Pain in left shoulder; I10 Essential (primary) hypertension; E11.9 Type 2 diabetes mellitus without complications; E78.00 Pure hypercholesterolemia, unspecified; F17.210 Nicotine dependence, cigarettes, uncomplicated; Z88.2 Allergy status to sulfonamides; Z88.8 Allergy status to other drugs, medicaments and biological substances; Z79.899 Other long term (current) drug therapy
CPT/HCPCS: 80053; 82962; 85025; 99284

== ENCOUNTER 2022-06-06 10:55 | Emergency (ER) | payer MEDICARE, MEDICAID ==
[~2022-06-06] VITALS: Ht 167.6 cm; Wt 103.6 kg
[~2022-06-06 10:55] MED LIST changes: -BENZ-70 PO; -CEPH-558 PO; +CLIN-142 PO; -FAMO20 PO; +FURO40 PO; -INSU100V SQ
[2022-06-06] MEDS ORDERED: CHOL25TA4 PO (11:15)
[2022-06-06] MEDS ORDERED: CYAN250014 PO (11:15)
[2022-06-06] MEDS ORDERED: TAMS-13 PO (11:15)
[2022-06-06] MEDS ORDERED: LIRA0.6P SQ (11:15)
[2022-06-06] MEDS ORDERED: INSU100V SQ (11:15)
[2022-06-06] MEDS ORDERED: LOSA-381 PO (11:15)
[2022-06-06 11:39] LABS: COVID AG,FIA SOURCE NASOPHARYNGEAL
[2022-06-06 12:03] LABS: BASOPHILS % (AUTO) 0.9 % (0.0-2.0); EOSINOPHILS % (AUTO) 3.1 % (1.0-6.0); HEMOGLOBIN 14.4 g/dL (13.5-17.5); LYMPHOCYTES # (AUTO) 2.7 K/uL (1.0-4.8); LYMPHOCYTES % (AUTO) 29.5 % (22.0-44.0); MEAN CORPUSCULAR HEMOGLOBIN 28.5 pg (26.0-34.0); MEAN CORPUSCULAR HGB CONC 32.8 G/dL (31.0-37.0); MEAN CORPUSCULAR VOLUME 87 fL (80-100); MONOCYTES # (AUTO) 0.8 K/uL (0.1-1.0); NEUTROPHILS # (AUTO) 5.4 K/uL (1.8-7.7); NEUTROPHILS % (AUTO) 57.5 % (40.0-70.0); PLATELET COUNT (AUTO) 113 K/uL (150-450); RED BLOOD CELL COUNT(AUTO) 5.06 MIL/uL (4.50-5.90); RED CELL DISTRIBUTION WIDTH 14.2 % (11.5-14.5)
[2022-06-06 12:13] LABS: INFLUENZA TYPE A NEGATIVE FOR TYPE A (NEGATIVE); INFLUENZA TYPE B NEGATIVE FOR TYPE B (NEGATIVE)
[2022-06-06 12:18] LABS: CALCIUM, TOTAL 9.3 mg/dL (8.8-10.5); CREATININE 1.42 mg/dL (0.60-1.30); POTASSIUM 4.7 mmol/L (3.5-5.1)
[2022-06-06 12:22] LABS: ALBUMIN 3.7 g/dL (3.4-5.0); BILIRUBIN,TOTAL 0.4 mg/dL (0.1-1.0); TOTAL PROTEIN, SERUM 8.1 g/dL (6.4-8.2)
[2022-06-06 12:45] LABS: APPEARANCE,URINE CLEAR (CLEAR); BILIRUBIN,URINE NEGATIVE (NEGATIVE); GLUCOSE, URINE (UA) NEGATIVE (NEGATIVE); KETONES,URINE NEGATIVE (NEGATIVE); LEUKOCYTE ESTERASE ,URINE MODERATE (NEGATIVE); NITRATE,URINE NEGATIVE (NEGATIVE); OCCULT BLOOD,URINE NEGATIVE (NEGATIVE); PH,URINE 6.5 (5.0-8.0); PROTEIN,URINE 30-70 mg/dL (NEGATIVE); SPECIFIC GRAVITIY, URINE 1.013 (1.003-1.030); UROBILINOGEN,URINE <=1.0 mg/dL (<=1.0)
[2022-06-06 13:07] LABS: BACTERIA,URINE Many /HPF (None Seen); RBC,URINE None Seen /HPF (0-2); SQUAMOUS EPITHELIAL CELL,UR Few /LPF (None Seen)
[2022-06-06 15:14] VITALS: BP 126/74
[2022-06-06] MEDS ORDERED: FUROSEMIDE 20 MG TABLET PO ONE (15:15)
[2022-06-06] MEDS ORDERED: CEPHALEXIN MONOHYDRATE 500 MG CAPSULE PO ONE (15:15)
[2022-06-06] MEDS ORDERED: CEPH-558 PO (15:16)
== END 2022-06-06 15:42 | disposition home or self-care (01) ==
LOC: EMS 11:03
DX: J06.9 Acute upper respiratory infection, unspecified (principal); I11.0 Hypertensive heart disease with heart failure; I50.9 Heart failure, unspecified; N39.0 Urinary tract infection, site not specified; E78.00 Pure hypercholesterolemia, unspecified; E11.9 Type 2 diabetes mellitus without complications; F17.210 Nicotine dependence, cigarettes, uncomplicated; Z98.890 Other specified postprocedural states; Z20.822 Contact with and (suspected) exposure to COVID-19
CPT/HCPCS: 71045; 80053; 81001; 83690; 83880; 84484; 85025; 87086; 87186; 87430; 87804; 93005; 99285; 36415-L1; 36415-TC